=== PATIENT | male | born 1955 | race African-American/Black ===

== ENCOUNTER 2020-07-24 13:55 | Inpatient (IN) | payer MEDICARE, MEDICAID ==
[~2020-07-24] VITALS: Ht 182.9 cm; Wt 68.0 kg
[~2020-07-24 13:55] MED LIST: FAMO-135 MT; MIDO5TAB4 MT
[2020-07-24] MEDS ORDERED: IOHEXOL-350 100 ML BOTTLE ONE ×2 (14:40→15:30)
[2020-07-24 15:01] LABS: BASOPHILS % 0.4 % (0.0-2.0); EOSINOPHILS % 4.2 % (0.0-5.0); LYMPHOCYTES % 12.4 % (20.0-50.0); MEAN CORPUSCULAR HEMOGLOBIN 30.6 pg (28.0-32.0); MEAN CORPUSCULAR VOLUME 91.1 fL (80.0-94.0); MEAN PLATELET VOLUME 7.7 fl (7.4-10.4); MONOCYTES % 6.4 % (2.0-8.0); NEUTROPHILS % 76.6 % (40.0-76.0); PLATELET 355 x1000/uL (130-400); RED BLOOD CELL COUNT 2.18 mill/uL (4.7-6.1); RED CELL DISTRIBUTION WIDTH 18.3 % (11.6-14.6)
[2020-07-24 15:12] LABS: CHLORIDE 111 mEq/L (98-107)
[2020-07-24 15:13] LABS: HEMATOCRIT. 19.9 % (42.0-52.0); HEMOGLOBIN. 6.7 g/dL (14.0-18.0)
[2020-07-24 15:15] LABS: ETHANOL BLOOD < 10 mg/dL
[2020-07-24] MEDS ORDERED: FUROSEMIDE 100MG/10ML VIAL IV STA (15:28)
[2020-07-24] MEDS ORDERED: CALCIUM CHLORIDE 1GM/10ML SYR IV ONE (15:30)
[2020-07-24] MEDS ORDERED: INSULIN REGULAR (HUMULIN R) 300UNITS/3ML VIAL IV ONE (15:30)
[2020-07-24] MEDS ORDERED: ALBUTEROL (0.083%) 2.5MG/3ML NEB HHN ONE (15:30)
[2020-07-24] MEDS ORDERED: DEXTROSE 50% WATER 50ML SYRINGE IV ONE ×2 (15:30→17:45)
[2020-07-24 16:16] LABS: HAPTOGLOBIN 214 mg/dL (30-200)
[2020-07-24 16:34] LABS: CLARITY URINE CLOUDY (CLEAR); COLOR URINE YELLOW (YELLOW); KETONES URINE NEGATIVE (NEGATIVE); LEUKOCYTE ESTERASE URINE 3+ (NEGATIVE); NITRITE URINE NEGATIVE (NEGATIVE); OCCULT BLOOD URINE 1+ (NEGATIVE); PH URINE 6.5 (4.5-8.0); PROTEIN URINE 2+ (NEGATIVE); SPECIFIC GRAVITY URINE 1.009 (1.005-1.030); UROBILINOGEN URINE 0.2 E.U./dL (0.2-1.0)
[2020-07-24 16:46] LABS: *AMPHETAMINES SCREEN URINE NEGATIVE (NEGATIVE); *BARBITURATES SCREEN URINE NEGATIVE (NEGATIVE)
[2020-07-24 16:47] LABS: *BENZODIAZEPINES SCREEN URINE NEGATIVE (NEGATIVE); *COCAINE SCREEN URINE NEGATIVE (NEGATIVE); METHADONE URINE SCREEN NEGATIVE (NEGATIVE); OPIATES URINE SCREEN NEGATIVE (NEGATIVE)
[2020-07-24 16:48] LABS: CANNABINOID URINE SCREEN NEGATIVE (NEGATIVE); PHENCYCLIDINE URINE SCREEN NEGATIVE (NEGATIVE)
[2020-07-24] MEDS ORDERED: HYDRALAZINE 20MG/ML VIAL IV PRN (17:30)
[2020-07-24] MEDS ORDERED: DEXTROSE 50% WATER 50ML SYRINGE IV PRN (17:30)
[2020-07-24] MEDS ORDERED: LIDOCAINE HCL 1% 20ML VIAL (Pyxis) INJ INFIL ONE (17:30)
[2020-07-24] MEDS ORDERED: LORAZEPAM 2MG/ML CPJ IV PRN (17:30)
[2020-07-24] MEDS ORDERED: ONDANSETRON HCL 4MG/2ML INJ IV PRN (17:30)
[2020-07-24] MEDS ORDERED: MORPHINE SULFATE 2 MG/ML CPJ (NOT FOR IM USE) IV PRN (17:30)
[2020-07-24] MEDS ORDERED: SODIUM CHLORIDE 0.9% 250 ML IV ONE (17:45)
[2020-07-24] MEDS ORDERED: SODIUM BICARBONATE 8.4% 1 MEQ/ML 50ML SYR IV NR (17:45)
[2020-07-24 18:07] LABS: C REACTIVE PROTEIN CARDIAC 5.6 mg/L (0.00-3.00)
[2020-07-24 18:11] LABS: D-DIMER 10.87 mg/L FEU (<0.50)
[2020-07-24 18:14] LABS: PROSTRATE SPECIFIC AG TOTAL 3.05 ng/mL (0.0-4.0)
[2020-07-24] MEDS ORDERED: DEXT 5%/0.45% NACL 1000ML 1,000 ML IV SCH (18:15)
[2020-07-24] MEDS: INSULIN LISPRO 100 UNITS/ML SUBCUT SCH ×2 (18:20→22:35)
[2020-07-24] MEDS ORDERED: CALCIUM GLUCONATE 100MG/ML 10ML VIAL IV ONE (18:30)
[2020-07-24 18:47] LABS: BG BASE EXCESS -10.3 mmol/L (-2.0-2.0); BG CARBOXYHEMOGLOBIN 0.2 % (0.5-1.5); BG DEOXYHEMOGLOBIN 2.7 % (0.0-5.0); BG FRACTION INSPIRED OXYGEN 21; BG HCO3 ACT 14.9 mmol/L (22.0-26.0); BG METHEMOGLOBIN 0.7 % (0.0-1.5); BG OXYGEN SATURATION 97.3 % (92.0-98.5); BG OXYHEMOGLOBIN 96.4 % (94.0-97.0); BG PCO2 29.8 mmHg (35.0-45.0); BG PH 7.316 (7.350-7.450); BG PO2 108.8 mmHg (75.0-100.0); BG SAMPLE SITE RIGHT RADIAL; BG TOTAL HEMOGLOBIN 7.3 g/dL (12.0-18.0); BG VENT MODE ROOM AIR
[2020-07-24 19:39] LABS: FOLIC ACID (FOLATE) SERUM 10.4 ng/mL (>5.38)
[2020-07-24] MEDS ORDERED: VANCOMYCIN 1500MG in DEXTROSE 5% WATER 250ML IV NR (20:00)
[2020-07-24] MEDS: DEXT 5%/0.9% NACL 1,000 ML IV SCH (20:15)
[2020-07-24] MEDS: PANTOPRAZOLE SODIUM 40 MG/VIAL IV SCH (20:15)
[2020-07-24] MEDS: PIPERACILLIN/TAZOBACTAM 2.25 G in DEXTROSE 5% WATER 50 ML IV SCH (20:25)
[2020-07-24] MEDS ORDERED: HEPARIN SODIUM 1,000 UNIT/1ML VIAL IV NR (20:30)
[2020-07-24] MEDS ORDERED: NOREPINEPHRINE 8 MG in DEXTROSE 5% WATER 250 ML IV PRN (21:00)
[2020-07-24] MEDS: BLOOD SUGAR DIAGNOSTIC STRIP TEST SCH (22:34)
[2020-07-25 00:57] LABS: HEMATOCRIT 28.8 % (42.0-52.0); HEMOGLOBIN 9.5 g/dL (14.0-18.0)
[2020-07-25 01:07] LABS: CHLORIDE 106 mEq/L (98-107)
[2020-07-25 01:16] LABS: CREATINE KINASE 344 IU/L (39-308)
[2020-07-25 01:19] LABS: CREATINE KINASE MB FRACTION 12.6 ng/mL (0.5-3.6)
[2020-07-25] MEDS: PIPERACILLIN/TAZOBACTAM 2.25 G in DEXTROSE 5% WATER 50 ML IV SCH (02:21)
[2020-07-25 05:28] LABS: BASOPHILS % 0.2 % (0.0-2.0); EOSINOPHILS % 2.4 % (0.0-5.0); HEMATOCRIT. 30.8 % (42.0-52.0); LYMPHOCYTES % 12.1 % (20.0-50.0); MEAN CORPUSCULAR HEMOGLOBIN 29.7 pg (28.0-32.0); MEAN PLATELET VOLUME 7.1 fl (7.4-10.4); MONOCYTES % 8.3 % (2.0-8.0); PLATELET 314 x1000/uL (130-400); RED BLOOD CELL COUNT 3.46 mill/uL (4.7-6.1); RED CELL DISTRIBUTION WIDTH 15.9 % (11.6-14.6)
[2020-07-25 05:36] LABS: CHLORIDE 111 mEq/L (98-107)
[2020-07-25 05:47] LABS: LDL CHOLESTEROL 93 mg/dL (5-100); PHOSPHORUS 4.9 mg/dL (2.5-4.9); T4 FREE 0.88 ng/dL (0.76-1.46)
[2020-07-25 05:48] LABS: CREATINE KINASE 371 IU/L (39-308); CREATINE KINASE MB FRACTION 13.6 ng/mL (0.5-3.6)
[2020-07-25 05:49] LABS: HDL CHOLESTEROL 58 mg/dL (40-59)
[2020-07-25 06:36] LABS: HEMOGLOBIN. 10.3 g/dL (14.0-18.0)
[2020-07-25] MEDS: DEXT 5%/0.9% NACL 1,000 ML IV SCH ×2 (08:24→11:30)
[2020-07-25] MEDS: INSULIN LISPRO 100 UNITS/ML SUBCUT SCH ×3 (09:50→21:00)
[2020-07-25] MEDS: BLOOD SUGAR DIAGNOSTIC STRIP TEST SCH ×4 (09:50→21:00)
[2020-07-25] MEDS ORDERED: PIPERACILLIN/TAZOBACTAM 2.25 G in DEXTROSE 5% WATER 50 ML IV SCH (10:00)
[2020-07-25 13:15] VITALS: BP 125/77
[2020-07-25 14:00] VITALS: BP 117/77
[2020-07-25 15:47] LABS: HEMATOCRIT 29.1 % (42.0-52.0); HEMOGLOBIN 9.7 g/dL (14.0-18.0)
[2020-07-25 16:00] VITALS: BP 81/42
[2020-07-25 17:02] VITALS: BP 121/81
[2020-07-25 18:00] VITALS: BP 108/74
[2020-07-25 19:08] LABS: HEMATOCRIT 30.5 % (42.0-52.0); HEMOGLOBIN 9.8 g/dL (14.0-18.0)
[2020-07-25 20:00] VITALS: BP 107/65
[2020-07-25] MEDS ORDERED: LORAZEPAM 2MG/ML CPJ IM PRN (22:00)
[2020-07-26 08:00] VITALS: BP 126/82
[2020-07-26] MEDS: INSULIN LISPRO 100 UNITS/ML SUBCUT SCH ×4 (08:00→21:00)
[2020-07-26] MEDS: BLOOD SUGAR DIAGNOSTIC STRIP TEST SCH ×4 (08:05→21:11)
[2020-07-26 10:00] VITALS: BP 126/81
[2020-07-26 11:02] LABS: BASOPHILS % 0.2 % (0.0-2.0); EOSINOPHILS % 2.2 % (0.0-5.0); HEMATOCRIT. 30.7 % (42.0-52.0); HEMOGLOBIN. 10.2 g/dL (14.0-18.0); LYMPHOCYTES % 12.1 % (20.0-50.0); MEAN CORPUSCULAR HEMOGLOBIN 29.9 pg (28.0-32.0); MEAN CORPUSCULAR VOLUME 90.3 fL (80.0-94.0); MEAN PLATELET VOLUME 7.5 fl (7.4-10.4); MONOCYTES % 8.7 % (2.0-8.0); NEUTROPHILS % 76.8 % (40.0-76.0); PLATELET 333 x1000/uL (130-400); RED BLOOD CELL COUNT 3.41 mill/uL (4.7-6.1)
[2020-07-26 11:09] LABS: CHLORIDE 114 mEq/L (98-107)
[2020-07-26 11:15] LABS: PHOSPHORUS 3.8 mg/dL (2.5-4.9)
[2020-07-26 11:30] LABS: CREATINE KINASE 1059 IU/L (39-308)
[2020-07-26] MEDS: DEXT 5%/0.9% NACL 1,000 ML IV SCH (11:30)
[2020-07-26 14:00] VITALS: BP 124/29
[2020-07-26 16:00] VITALS: BP 124/70
[2020-07-26 17:44] LABS: BG BASE EXCESS -1.7 mmol/L (-2.0-2.0); BG CARBOXYHEMOGLOBIN 0.3 % (0.5-1.5); BG HCO3 ACT 22.5 mmol/L (22.0-26.0); BG METHEMOGLOBIN 0.3 % (0.0-1.5); BG OXYHEMOGLOBIN 95.4 % (94.0-97.0); BG PCO2 36.2 mmHg (35.0-45.0); BG PH 7.412 (7.350-7.450); BG PO2 79.2 mmHg (75.0-100.0); BG SAMPLE SITE RIGHT BRACHIAL; BG TOTAL HEMOGLOBIN 11.6 g/dL (12.0-18.0); BG VENT MODE ROOM AIR
[2020-07-26 20:00] VITALS: BP 111/67
[2020-07-26] MEDS: PIPERACILLIN/TAZOBACTAM 2.25 G in DEXTROSE 5% WATER 50 ML IV SCH ×2 (20:02→21:06)
[2020-07-26 22:00] VITALS: BP 109/63
[2020-07-27] VITALS (11 sets, daily range): BP systolic 101–126; BP diastolic 55–76
[2020-07-27] MEDS: PIPERACILLIN/TAZOBACTAM 2.25 G in DEXTROSE 5% WATER 50 ML IV SCH ×4 (04:55→23:14)
[2020-07-27] MEDS: DEXT 5%/0.9% NACL 1,000 ML IV SCH ×2 (04:55→21:46)
[2020-07-27 06:52] LABS: BASOPHILS % 0.2 % (0.0-2.0); EOSINOPHILS % 3.8 % (0.0-5.0); HEMATOCRIT. 27.7 % (42.0-52.0); LYMPHOCYTES % 20.3 % (20.0-50.0); MEAN CORPUSCULAR HEMOGLOBIN 29.7 pg (28.0-32.0); MEAN CORPUSCULAR VOLUME 91.6 fL (80.0-94.0); MEAN PLATELET VOLUME 7.6 fl (7.4-10.4); MONOCYTES % 10.8 % (2.0-8.0); NEUTROPHILS % 64.9 % (40.0-76.0); PLATELET 291 x1000/uL (130-400); RED BLOOD CELL COUNT 3.02 mill/uL (4.7-6.1)
[2020-07-27 07:16] LABS: PHOSPHORUS 4.1 mg/dL (2.5-4.9)
[2020-07-27 07:18] LABS: HEPATITIS B SURFACE ANTIGEN NEGATIVE
[2020-07-27 07:20] LABS: CREATINE KINASE MB FRACTION 5.8 ng/mL (0.5-3.6)
[2020-07-27 07:47] LABS: HEPATITIS A AB IGM NEGATIVE (NEGATIVE)
[2020-07-27] MEDS: BLOOD SUGAR DIAGNOSTIC STRIP TEST SCH ×4 (07:58→21:00)
[2020-07-27] MEDS: INSULIN LISPRO 100 UNITS/ML SUBCUT SCH ×4 (07:58→22:01)
[2020-07-27] MEDS: PANTOPRAZOLE SODIUM 40 MG/VIAL IV SCH ×2 (11:03→18:25)
[2020-07-27] MEDS: EPOETIN ALFA-EPBX 4,000 UNIT/ML VIAL SUBCUT SCH (21:52)
[2020-07-28] VITALS (11 sets, daily range): BP systolic 83–145; BP diastolic 52–72
[2020-07-28 06:07] LABS: HIV SCREEN 4G Non Reactive (Non Reactive)
[2020-07-28] MEDS: PIPERACILLIN/TAZOBACTAM 2.25 G in DEXTROSE 5% WATER 50 ML IV SCH ×3 (06:17→23:19)
[2020-07-28 06:42] LABS: BASOPHILS % 0.3 % (0.0-2.0); EOSINOPHILS % 5.6 % (0.0-5.0); HEMATOCRIT. 24.9 % (42.0-52.0); HEMOGLOBIN. 8.2 g/dL (14.0-18.0); LYMPHOCYTES % 17.6 % (20.0-50.0); MEAN CORPUSCULAR HEMOGLOBIN 30.5 pg (28.0-32.0); MEAN CORPUSCULAR VOLUME 92.7 fL (80.0-94.0); MEAN PLATELET VOLUME 7.9 fl (7.4-10.4); MONOCYTES % 9.4 % (2.0-8.0); NEUTROPHILS % 67.1 % (40.0-76.0); PLATELET 264 x1000/uL (130-400); RED BLOOD CELL COUNT 2.69 mill/uL (4.7-6.1)
[2020-07-28] MEDS: INSULIN LISPRO 100 UNITS/ML SUBCUT SCH ×4 (08:00→20:53)
[2020-07-28 08:05] LABS: CHLORIDE 116 mEq/L (98-107)
[2020-07-28] MEDS: BLOOD SUGAR DIAGNOSTIC STRIP TEST SCH ×4 (08:06→20:53)
[2020-07-28 08:12] LABS: PHOSPHORUS 3.5 mg/dL (2.5-4.9)
[2020-07-28] MEDS ORDERED: HEPARIN SODIUM 1,000 UNIT/1ML VIAL IV SCH (08:30)
[2020-07-28] MEDS: PANTOPRAZOLE SODIUM 40 MG/VIAL IV SCH (10:56)
[2020-07-28] MEDS: DEXT 5%/0.9% NACL 1,000 ML IV SCH (14:19)
[2020-07-28] MEDS: MIDODRINE HCL 5MG TABLET PO SCH (18:07)
[2020-07-28] MEDS ORDERED: IOHEXOL 350 MG/ML 200ML INFUS..BTL IV ONE (21:53)
[2020-07-29] VITALS (8 sets, daily range): BP systolic 96–117; BP diastolic 45–73
[2020-07-29] MEDS: DEXT 5%/0.9% NACL 1,000 ML IV SCH ×2 (01:55→13:05)
[2020-07-29 06:04] LABS: PHOSPHORUS 3.2 mg/dL (2.5-4.9)
[2020-07-29 06:12] LABS: BASOPHILS % 0.3 % (0.0-2.0); EOSINOPHILS % 8.1 % (0.0-5.0); HEMATOCRIT. 24.1 % (42.0-52.0); HEMOGLOBIN. 8.1 g/dL (14.0-18.0); MEAN CORPUSCULAR HEMOGLOBIN 30.6 pg (28.0-32.0); MEAN CORPUSCULAR VOLUME 90.9 fL (80.0-94.0); MEAN PLATELET VOLUME 7.8 fl (7.4-10.4); MONOCYTES % 10.2 % (2.0-8.0); NEUTROPHILS % 60.4 % (40.0-76.0); PLATELET 232 x1000/uL (130-400); RED BLOOD CELL COUNT 2.65 mill/uL (4.7-6.1); RED CELL DISTRIBUTION WIDTH 15.7 % (11.6-14.6)
[2020-07-29] MEDS: PIPERACILLIN/TAZOBACTAM 2.25 G in DEXTROSE 5% WATER 50 ML IV SCH ×3 (06:33→20:47)
[2020-07-29] MEDS: INSULIN LISPRO 100 UNITS/ML SUBCUT SCH ×4 (07:53→20:47)
[2020-07-29] MEDS: BLOOD SUGAR DIAGNOSTIC STRIP TEST SCH ×4 (07:53→20:47)
[2020-07-29] MEDS: PANTOPRAZOLE SODIUM 40 MG/VIAL IV SCH ×2 (08:00→17:33)
[2020-07-29] MEDS: MIDODRINE HCL 5MG TABLET PO SCH ×3 (08:03→17:34)
[2020-07-30] VITALS (7 sets, daily range): BP systolic 110–131; BP diastolic 39–71
[2020-07-30] MEDS: EPOETIN ALFA-EPBX 4,000 UNIT/ML VIAL SUBCUT SCH (00:30)
[2020-07-30] MEDS: DEXT 5%/0.9% NACL 1,000 ML IV SCH ×3 (00:47→17:22)
[2020-07-30] MEDS: PIPERACILLIN/TAZOBACTAM 2.25 G in DEXTROSE 5% WATER 50 ML IV SCH (05:47)
[2020-07-30 06:17] LABS: BASOPHILS % 0.4 % (0.0-2.0); EOSINOPHILS % 6.5 % (0.0-5.0); HEMATOCRIT. 23.4 % (42.0-52.0); HEMOGLOBIN. 8.1 g/dL (14.0-18.0); MEAN CORPUSCULAR HEMOGLOBIN 31.7 pg (28.0-32.0); MEAN CORPUSCULAR VOLUME 91.7 fL (80.0-94.0); NEUTROPHILS % 61.1 % (40.0-76.0); PLATELET 227 x1000/uL (130-400); RED BLOOD CELL COUNT 2.55 mill/uL (4.7-6.1); RED CELL DISTRIBUTION WIDTH 15.9 % (11.6-14.6)
[2020-07-30] MEDS: BLOOD SUGAR DIAGNOSTIC STRIP TEST SCH ×4 (07:30→21:00)
[2020-07-30] MEDS: INSULIN LISPRO 100 UNITS/ML SUBCUT SCH ×4 (08:00→21:15)
[2020-07-30] MEDS: PANTOPRAZOLE SODIUM 40 MG/VIAL IV SCH ×2 (09:28→17:20)
[2020-07-30] MEDS: MIDODRINE HCL 5MG TABLET PO SCH ×3 (09:28→17:20)
[2020-07-30] MEDS: ACETAMINOPHEN 325MG TABLET PO PRN (21:36)
[2020-07-30 22:01] LABS: CLARITY URINE CLEAR (CLEAR); COLOR URINE YELLOW (YELLOW); KETONES URINE NEGATIVE (NEGATIVE); LEUKOCYTE ESTERASE URINE 2+ (NEGATIVE); NITRITE URINE NEGATIVE (NEGATIVE); OCCULT BLOOD URINE 2+ (NEGATIVE); PH URINE 6.5 (4.5-8.0); PROTEIN URINE TRACE (NEGATIVE); SPECIFIC GRAVITY URINE 1.006 (1.005-1.030); UROBILINOGEN URINE 0.2 E.U./dL (0.2-1.0)
[2020-07-31] VITALS (11 sets, daily range): BP systolic 92–133; BP diastolic 37–78
[2020-07-31 05:57] LABS: BASOPHILS % 0.4 % (0.0-2.0); EOSINOPHILS % 8.7 % (0.0-5.0); HEMATOCRIT. 22.6 % (42.0-52.0); HEMOGLOBIN. 7.7 g/dL (14.0-18.0); LYMPHOCYTES % 23.7 % (20.0-50.0); MEAN CORPUSCULAR HEMOGLOBIN 31.3 pg (28.0-32.0); MEAN CORPUSCULAR VOLUME 91.9 fL (80.0-94.0); MONOCYTES % 11.9 % (2.0-8.0); NEUTROPHILS % 55.3 % (40.0-76.0); PLATELET 221 x1000/uL (130-400); RED BLOOD CELL COUNT 2.46 mill/uL (4.7-6.1); RED CELL DISTRIBUTION WIDTH 15.7 % (11.6-14.6)
[2020-07-31] MEDS: INSULIN LISPRO 100 UNITS/ML SUBCUT SCH ×4 (08:00→21:00)
[2020-07-31] MEDS: BLOOD SUGAR DIAGNOSTIC STRIP TEST SCH ×4 (08:14→21:00)
[2020-07-31] MEDS: MIDODRINE HCL 5MG TABLET PO SCH ×3 (09:00→17:00)
[2020-07-31] MEDS: PANTOPRAZOLE SODIUM 40 MG/VIAL IV SCH ×2 (09:11→17:57)
[2020-08-01] VITALS (9 sets, daily range): BP systolic 114–136; BP diastolic 60–79
[2020-08-01 06:55] LABS: BASOPHILS % 0.3 % (0.0-2.0); EOSINOPHILS % 6.5 % (0.0-5.0); HEMATOCRIT. 24.2 % (42.0-52.0); HEMOGLOBIN. 8.1 g/dL (14.0-18.0); LYMPHOCYTES % 20.9 % (20.0-50.0); MEAN CORPUSCULAR HEMOGLOBIN 30.7 pg (28.0-32.0); MEAN CORPUSCULAR VOLUME 91.3 fL (80.0-94.0); MEAN PLATELET VOLUME 8.2 fl (7.4-10.4); MONOCYTES % 9.3 % (2.0-8.0); PLATELET 241 x1000/uL (130-400); RED BLOOD CELL COUNT 2.65 mill/uL (4.7-6.1); RED CELL DISTRIBUTION WIDTH 15.5 % (11.6-14.6)
[2020-08-01 07:18] LABS: PHOSPHORUS 2.9 mg/dL (2.5-4.9)
[2020-08-01] MEDS: BLOOD SUGAR DIAGNOSTIC STRIP TEST SCH ×4 (07:30→21:32)
[2020-08-01] MEDS: MIDODRINE HCL 5MG TABLET PO SCH ×3 (08:36→18:22)
[2020-08-01] MEDS: PANTOPRAZOLE SODIUM 40 MG/VIAL IV SCH ×2 (08:36→18:21)
[2020-08-01] MEDS: INSULIN LISPRO 100 UNITS/ML SUBCUT SCH ×3 (13:00→21:32)
[2020-08-01] MEDS ORDERED: MAGNESIUM 2 G PREMIX 50 ML IV SCH (16:00)
[2020-08-01] MEDS: ACETAMINOPHEN 325MG TABLET PO PRN (20:27)
[2020-08-01] MEDS: EPOETIN ALFA-EPBX 4,000 UNIT/ML VIAL SUBCUT SCH (21:57)
[2020-08-02] VITALS (12 sets, daily range): BP systolic 77–116; BP diastolic 49–82
[2020-08-02 06:47] LABS: BASOPHILS % 0.3 % (0.0-2.0); EOSINOPHILS % 5.7 % (0.0-5.0); HEMATOCRIT. 25.8 % (42.0-52.0); HEMOGLOBIN. 8.5 g/dL (14.0-18.0); LYMPHOCYTES % 20.1 % (20.0-50.0); MEAN CORPUSCULAR HEMOGLOBIN 30.3 pg (28.0-32.0); MEAN CORPUSCULAR VOLUME 91.5 fL (80.0-94.0); MONOCYTES % 9.8 % (2.0-8.0); NEUTROPHILS % 64.1 % (40.0-76.0); PLATELET 257 x1000/uL (130-400); RED BLOOD CELL COUNT 2.82 mill/uL (4.7-6.1); RED CELL DISTRIBUTION WIDTH 15.3 % (11.6-14.6)
[2020-08-02 07:06] LABS: PHOSPHORUS 4.3 mg/dL (2.5-4.9)
[2020-08-02] MEDS: BLOOD SUGAR DIAGNOSTIC STRIP TEST SCH ×4 (07:30→21:31)
[2020-08-02] MEDS: INSULIN LISPRO 100 UNITS/ML SUBCUT SCH ×4 (08:00→21:40)
[2020-08-02] MEDS: MIDODRINE HCL 5MG TABLET PO SCH ×4 (09:00→18:39)
[2020-08-02] MEDS: PANTOPRAZOLE SODIUM 40 MG/VIAL IV SCH ×2 (09:00→18:38)
[2020-08-02] MEDS: ACETAMINOPHEN 325MG TABLET PO PRN (10:34)
[2020-08-02] MEDS ORDERED: DIPHENHYDRAMINE 50MG/ML VIAL IV PRN (13:45)
[2020-08-02] MEDS ORDERED: IPRATROPIUM/ALBUTEROL 0.5-3(2.5)MG/3ML NEB HHN PRN (13:45)
[2020-08-02] MEDS ORDERED: HYDRALAZINE 10 MG in SODIUM CHLORIDE 0.9% 49.5 ML IV PRN (13:45)
[2020-08-02] MEDS ORDERED: HYDROCODONE/ACETAMINOPHEN 5/325MG TABLET PO PRN (13:45)
[2020-08-02] MEDS ORDERED: LORAZEPAM 2MG/ML CPJ IV PRN (13:45)
[2020-08-02] MEDS ORDERED: BISACODYL 10MG SUPP PR PRN (13:45)
[2020-08-02] MEDS ORDERED: HYDRALAZINE 20MG/ML VIAL IV PRN (14:00)
[2020-08-02] MEDS: DEXAMETHASONE 4MG/ML 1ML VIAL IV SCH ×2 (18:38→23:18)
[2020-08-02] MEDS ORDERED: NOREPINEPHRINE 8 MG in DEXT 5% WATER 242 ML IV PRN (20:00)
[2020-08-02] MEDS ORDERED: PHENYLEPHRINE 50 MG in DEXT 5% WATER 245 ML IV PRN (20:00)
[2020-08-03] VITALS (77 sets, daily range): BP systolic 40–188; BP diastolic 14–187
[2020-08-03] MEDS ORDERED: DEXT 5%/0.9% NACL 1,000 ML IV SCH
[2020-08-03] MEDS: DEXAMETHASONE 4MG/ML 1ML VIAL IV SCH ×3 (05:29→17:22)
[2020-08-03] MEDS ORDERED: THROMBIN (BOVINE) 5000 UNITS/VIAL TOP ONE (06:05)
[2020-08-03] MEDS ORDERED: BACITRACIN 50,000 UNITS/VIAL ONE (06:05)
[2020-08-03] MEDS ORDERED: NEOSTIGMINE METHYLSULFATE 1MG/ML 10 ML VIAL ONE (06:50)
[2020-08-03] MEDS ORDERED: ROCURONIUM BROMIDE 10MG/ML VIAL 5ML IV ONE (06:50)
[2020-08-03] MEDS ORDERED: FENTANYL CITRATE/PF 50MCG/ML 2ML VIAL ONE ×3 (06:50→07:32)
[2020-08-03] MEDS ORDERED: PROPOFOL 200MG/20ML VIAL IV ONE (06:51)
[2020-08-03] MEDS ORDERED: METOCLOPRAMIDE HCL 10MG/2ML VIAL ONE (06:51)
[2020-08-03] MEDS ORDERED: EPHEDRINE SULFATE 50MG/ML VIAL ONE (06:51)
[2020-08-03] MEDS ORDERED: GLYCOPYRROLATE 0.2 MG/ML 2ML VIAL ONE (06:51)
[2020-08-03] MEDS ORDERED: SUCCINYLCHOLINE CHLORIDE 200MG/10ML IV ONE (06:51)
[2020-08-03] MEDS ORDERED: MIDAZOLAM HCL 2 MG/2 ML VIAL ONE (06:51)
[2020-08-03] MEDS ORDERED: CEFAZOLIN SODIUM 1000MG/VIAL ONE (06:51)
[2020-08-03] MEDS ORDERED: PHENYLEPHRINE HCL 10 MG/ML 1ML (IV VIAL) IV ONE (06:51)
[2020-08-03] MEDS ORDERED: SODIUM CHLORIDE 0.9% 10ML VIAL ONE (06:51)
[2020-08-03] MEDS ORDERED: ONDANSETRON HCL 4MG/2ML INJ ONE (06:51)
[2020-08-03 06:59] LABS: BASOPHILS % 0.2 % (0.0-2.0); HEMATOCRIT. 25.4 % (42.0-52.0); HEMOGLOBIN. 8.6 g/dL (14.0-18.0); MEAN CORPUSCULAR HEMOGLOBIN 31.1 pg (28.0-32.0); MEAN CORPUSCULAR VOLUME 92.5 fL (80.0-94.0); MEAN PLATELET VOLUME 8.3 fl (7.4-10.4); MONOCYTES % 1.2 % (2.0-8.0); NEUTROPHILS % 83.6 % (40.0-76.0); PLATELET 287 x1000/uL (130-400); RED BLOOD CELL COUNT 2.75 mill/uL (4.7-6.1); RED CELL DISTRIBUTION WIDTH 15.4 % (11.6-14.6)
[2020-08-03 07:11] LABS: PHOSPHORUS 3.7 mg/dL (2.5-4.9)
[2020-08-03] MEDS ORDERED: DEXAMETHASONE 4MG/ML 1ML VIAL ONE (07:56)
[2020-08-03] MEDS: PANTOPRAZOLE SODIUM 40 MG/VIAL IV SCH ×2 (09:00→17:22)
[2020-08-03] MEDS: DEXT 5%/0.9% NACL 1,000 ML IV SCH ×2 (10:04→17:35)
[2020-08-03] MEDS: NICARDIPINE 100 MG in SODIUM CHLORIDE 0.9% 60 ML IV PRN ×2 (10:05→17:22)
[2020-08-03] MEDS: MORPHINE SULFATE 2 MG/ML CPJ (NOT FOR IM USE) IV PRN ×2 (10:06→17:24)
[2020-08-03] MEDS: BLOOD SUGAR DIAGNOSTIC STRIP TEST SCH ×3 (11:53→20:53)
[2020-08-03] MEDS: MIDODRINE HCL 5MG TABLET PO SCH ×2 (12:07→16:06)
[2020-08-03] MEDS: INSULIN LISPRO 100 UNITS/ML SUBCUT SCH ×3 (12:14→20:48)
[2020-08-03] MEDS ORDERED: CEFAZOLIN SODIUM 1000MG/VIAL IV SCH (14:00)
[2020-08-03] MEDS: AMLODIPINE 5MG TABLET PO SCH (17:23)
[2020-08-03] MEDS: CEFAZOLIN 1000MG PREMIX 50 ML IV SCH (17:39)
[2020-08-03] MEDS: HYDRALAZINE HCL 25MG TABLET PO SCH (21:38)
[2020-08-04] VITALS (81 sets, daily range): BP systolic 53–254; BP diastolic 47–253
[2020-08-04] MEDS: DEXAMETHASONE 4MG/ML 1ML VIAL IV SCH ×3 (00:06→12:32)
[2020-08-04] MEDS: NICARDIPINE 100 MG in SODIUM CHLORIDE 0.9% 60 ML IV PRN ×2 (01:50→08:03)
[2020-08-04] MEDS: DEXT 5%/0.9% NACL 1,000 ML IV SCH (04:32)
[2020-08-04 05:13] LABS: HEMOGLOBIN. 8.5 g/dL (14.0-18.0); MEAN CORPUSCULAR VOLUME 91.3 fL (80.0-94.0); MEAN PLATELET VOLUME 8.4 fl (7.4-10.4); PLATELET 351 x1000/uL (130-400); RED BLOOD CELL COUNT 2.85 mill/uL (4.7-6.1); RED CELL DISTRIBUTION WIDTH 15.5 % (11.6-14.6)
[2020-08-04 05:27] LABS: PHOSPHORUS 3.8 mg/dL (2.5-4.9)
[2020-08-04] MEDS: HYDRALAZINE HCL 25MG TABLET PO SCH (05:50)
[2020-08-04] MEDS: INSULIN LISPRO 100 UNITS/ML SUBCUT SCH ×4 (06:08→21:17)
[2020-08-04] MEDS: BLOOD SUGAR DIAGNOSTIC STRIP TEST SCH ×4 (06:09→21:00)
[2020-08-04] MEDS: CEFAZOLIN 1000MG PREMIX 50 ML IV SCH (06:20)
[2020-08-04] MEDS: PANTOPRAZOLE SODIUM 40 MG/VIAL IV SCH ×2 (08:32→17:31)
[2020-08-04] MEDS: AMLODIPINE 5MG TABLET PO SCH (08:32)
[2020-08-04] MEDS ORDERED: AMLODIPINE 5MG TABLET PO NR (10:00)
[2020-08-04] MEDS: HYDRALAZINE HCL 50MG TABLET PO SCH ×2 (10:02→17:31)
[2020-08-04 10:18] LABS: PLATELET ESTIMATE NORMAL
[2020-08-04] MEDS ORDERED: SODIUM POLYSTYRENE SULFONATE 15 G/60 ML BOT PO NR (11:00)
[2020-08-04] MEDS: METOPROLOL TARTRATE 25MG TABLET PO SCH (17:32)
[2020-08-04] MEDS ORDERED: DEXAMETHASONE 4MG/ML 1ML VIAL IV SCH (18:00)
[2020-08-05] VITALS (35 sets, daily range): BP systolic 95–131; BP diastolic 44–80
[2020-08-05] MEDS: HYDRALAZINE HCL 50MG TABLET PO SCH ×3 (02:50→18:36)
[2020-08-05 05:33] LABS: HEMATOCRIT. 26.9 % (42.0-52.0); HEMOGLOBIN. 8.8 g/dL (14.0-18.0); MEAN CORPUSCULAR HEMOGLOBIN 29.9 pg (28.0-32.0); MEAN CORPUSCULAR VOLUME 91.5 fL (80.0-94.0); MEAN PLATELET VOLUME 8.3 fl (7.4-10.4); PLATELET 389 x1000/uL (130-400); RED BLOOD CELL COUNT 2.94 mill/uL (4.7-6.1); RED CELL DISTRIBUTION WIDTH 15.7 % (11.6-14.6)
[2020-08-05 05:43] LABS: PHOSPHORUS 3.4 mg/dL (2.5-4.9)
[2020-08-05] MEDS: BLOOD SUGAR DIAGNOSTIC STRIP TEST SCH ×4 (06:30→20:49)
[2020-08-05] MEDS: METOPROLOL TARTRATE 25MG TABLET PO SCH ×2 (06:35→18:36)
[2020-08-05] MEDS: INSULIN LISPRO 100 UNITS/ML SUBCUT SCH ×4 (06:36→20:49)
[2020-08-05 07:58] LABS: PLATELET ESTIMATE NORMAL
[2020-08-05] MEDS: PANTOPRAZOLE SODIUM 40 MG/VIAL IV SCH ×2 (09:18→18:09)
[2020-08-05] MEDS: AMLODIPINE 10MG TABLET PO SCH (09:19)
[2020-08-05] MEDS ORDERED: SODIUM POLYSTYRENE SULFONATE 15 G/60 ML BOT PO NR (15:45)
[2020-08-06] VITALS (7 sets, daily range): BP systolic 99–125; BP diastolic 68–79
[2020-08-06] MEDS: HYDRALAZINE HCL 50MG TABLET PO SCH ×3 (01:24→18:00)
[2020-08-06] MEDS: METOPROLOL TARTRATE 25MG TABLET PO SCH ×2 (05:18→18:00)
[2020-08-06] MEDS: BLOOD SUGAR DIAGNOSTIC STRIP TEST SCH ×3 (05:41→20:20)
[2020-08-06 05:58] LABS: HEMATOCRIT. 26.1 % (42.0-52.0); HEMOGLOBIN. 8.7 g/dL (14.0-18.0); LYMPHOCYTES % 10.2 % (20.0-50.0); MEAN CORPUSCULAR HEMOGLOBIN 30.1 pg (28.0-32.0); MEAN CORPUSCULAR VOLUME 90.7 fL (80.0-94.0); MEAN PLATELET VOLUME 8.2 fl (7.4-10.4); MONOCYTES % 8.7 % (2.0-8.0); NEUTROPHILS % 81.1 % (40.0-76.0); PLATELET 418 x1000/uL (130-400); RED BLOOD CELL COUNT 2.88 mill/uL (4.7-6.1); RED CELL DISTRIBUTION WIDTH 15.6 % (11.6-14.6)
[2020-08-06 06:18] LABS: CHLORIDE 107 mEq/L (98-107)
[2020-08-06 06:25] LABS: PHOSPHORUS 3.6 mg/dL (2.5-4.9)
[2020-08-06] MEDS: PANTOPRAZOLE SODIUM 40 MG/VIAL IV SCH ×2 (08:21→17:00)
[2020-08-06] MEDS: INSULIN LISPRO 100 UNITS/ML SUBCUT SCH ×3 (08:25→20:20)
[2020-08-06] MEDS: AMLODIPINE 10MG TABLET PO SCH (09:29)
[2020-08-06] MEDS ORDERED: MORPHINE SULFATE 2 MG/ML CPJ (NOT FOR IM USE) IV PRN (13:45)
== END 2020-08-06 21:50 | DRG 853 ==
LOC: ER 14:09 → MICUSO 17:27 → EDBEDREQ 17:33 → EDBEDREQSVC 17:49 → EDBEDREQTM 17:49 → CVICU 07-25 09:56 → MICUSO 07-25 10:03 → 5EST 07-25 11:23 → MICUSO 08-03 09:16 → 6WST 08-05 11:20
PROVIDERS: ADMIT Internal Medicine; ATTEND Internal Medicine
PROC: B54BZZA Ultrasonography of Right Lower Extremity Veins, Guidance (ICD-10-PCS; 2020-07-24)
PROC: 06HY33Z Insertion of Infusion Device into Lower Vein, Percutaneous Approach (ICD-10-PCS; 2020-07-24)
PROC: 30233N1 Transfusion of Nonautologous Red Blood Cells into Peripheral Vein, Percutaneous Approach (ICD-10-PCS; 2020-07-24)
PROC: 5A1D70Z Performance of Urinary Filtration, Intermittent, Less than 6 Hours Per Day (ICD-10-PCS; 2020-07-24)
PROC: 5A1D70Z Performance of Urinary Filtration, Intermittent, Less than 6 Hours Per Day (ICD-10-PCS; 2020-07-25)
PROC: 0RG10A0 Fusion of Cervical Vertebral Joint with Interbody Fusion Device, Anterior Approach, Anterior Column, Open Approach (ICD-10-PCS; principal; 2020-08-03)
PROC: 0RB30ZZ Excision of Cervical Vertebral Disc, Open Approach (ICD-10-PCS; 2020-08-03)
PROC: 00NW0ZZ Release Cervical Spinal Cord, Open Approach (ICD-10-PCS; 2020-08-03)
PROC: 4A11X4G Monitoring of Peripheral Nervous Electrical Activity, Intraoperative, External Approach (ICD-10-PCS; 2020-08-03)
DX: A41.9 Sepsis, unspecified organism (principal); G93.41 Metabolic encephalopathy; G82.50 Quadriplegia, unspecified; N17.9 Acute kidney failure, unspecified; N13.6 Pyonephrosis; E87.2 Acidosis; M62.82 Rhabdomyolysis; G95.29 Other cord compression; N13.8 Other obstructive and reflux uropathy; E87.5 Hyperkalemia; E11.22 Type 2 diabetes mellitus with diabetic chronic kidney disease; D64.9 Anemia, unspecified; N18.30 Chronic kidney disease, stage 3 unspecified; M50.21 Other cervical disc displacement, high cervical region; M48.02 Spinal stenosis, cervical region; E83.42 Hypomagnesemia; F17.200 Nicotine dependence, unspecified, uncomplicated; K40.90 Unilateral inguinal hernia, without obstruction or gangrene, not specified as recurrent; R33.9 Retention of urine, unspecified; I13.10 Hypertensive heart and chronic kidney disease without heart failure, with stage 1 through stage 4 chronic kidney disease, or unspecified chronic kidney disease; N31.9 Neuromuscular dysfunction of bladder, unspecified; Z20.822 Contact with and (suspected) exposure to COVID-19; M47.892 Other spondylosis, cervical region; N28.1 Cyst of kidney, acquired; N40.0 Benign prostatic hyperplasia without lower urinary tract symptoms; I69.320 Aphasia following cerebral infarction; Z83.3 Family history of diabetes mellitus; Z79.899 Other long term (current) drug therapy
CPT/HCPCS: 36415; 36600; 70496; 70551; 71045; 72040; 72141; 72146; 72148; 74176; 76000; 76770; 78582; 80048; 80053; 80061; 80202; 80305; 80320; 81003; 82270; 82375; 82550; 82553; 82607; 82728; 82746; 82805; 82962; 83010; 83036; 83540; 83550; 83605; 83615; 83735; 83880; 84100; 84132; 84153; 84439; 84443; 84484; 85014; 85018; 85025; 85044; 85379; 85384; 86141; 86705; 86709; 86803; 86850; 86900; 86920; 87070; 87340; 87389; 87426; 88304; 88311; 93005; 93306; 93970; 94640; 96374; 97116; 97162; 97530; 99291; A9558; C1713; C9113; J0330; J0610; J0690; J0885; J1100; J1644; J1815; J1940; J2060; J2250; J2270; J2370; J2405; J2543; J2704; J2710; J2765; J3010; J3370; J3475; J3490; J7040; J7042; J7050; J7060; P9016; P9021; Q9967; C1762; G0103; G0480

== ENCOUNTER 2020-09-04 09:33 | Inpatient (IN) | payer MEDICARE, MEDICAID ==
[~2020-09-04] VITALS: Ht 162.6 cm; Wt 66.2 kg
[2020-09-04 10:34] LABS: HEMATOCRIT. 25.8 % (42.0-52.0); HEMOGLOBIN. 8.5 g/dL (14.0-18.0); MEAN CORPUSCULAR HEMOGLOBIN 30.9 pg (28.0-32.0); MEAN CORPUSCULAR VOLUME 93.6 fL (80.0-94.0); MEAN PLATELET VOLUME 6.8 fl (7.4-10.4); PLATELET 447 x1000/uL (130-400); RED BLOOD CELL COUNT 2.76 mill/uL (4.7-6.1)
[2020-09-04 10:39] LABS: CHLORIDE 95 mEq/L (98-107)
[2020-09-04 10:57] LABS: CLARITY URINE TURBID (CLEAR); COLOR URINE YELLOW (YELLOW); KETONES URINE TRACE (NEGATIVE); LEUKOCYTE ESTERASE URINE 3+ (NEGATIVE); NITRITE URINE NEGATIVE (NEGATIVE); OCCULT BLOOD URINE 3+ (NEGATIVE); PH URINE 5.5 (4.5-8.0); PROTEIN URINE 3+ (NEGATIVE); UROBILINOGEN URINE 0.2 E.U./dL (0.2-1.0)
[2020-09-04] MEDS ORDERED: CALCIUM GLUCONATE 100MG/ML 10ML VIAL IV ONE (11:00)
[2020-09-04] MEDS ORDERED: SODIUM CHLORIDE 0.9% 1000ML BAG (SEPSIS BOLUS) IV ONE (11:00)
[2020-09-04] MEDS ORDERED: VANCOMYCIN 1 G PREMIX 200 ML IV ONE (11:00)
[2020-09-04] MEDS ORDERED: PIPERACILLIN/TAZ 3.375G PREMIX 50 ML IV ONE (11:00)
[2020-09-04 11:28] LABS: PLATELET ESTIMATE INCREASED
[2020-09-04] MEDS ORDERED: CALCIUM GLUCONATE 2,000 MG in DEXT 5% WATER 90 ML IV NR (11:45)
[2020-09-04 12:40] LABS: INR 1.1; PROTHROMBIN TIME 11.5 sec (9.6-11.0)
[2020-09-04] MEDS ORDERED: INSULIN REGULAR (HUMULIN R) 300UNITS/3ML VIAL IV ONE (14:15)
[2020-09-04] MEDS ORDERED: DEXTROSE 50% WATER 50ML SYRINGE IV ONE (14:15)
[2020-09-04] MEDS ORDERED: MORPHINE SULFATE 2 MG/ML CPJ (NOT FOR IM USE) IV PRN (14:45)
[2020-09-04] MEDS ORDERED: ONDANSETRON HCL 4MG/2ML INJ IV PRN (14:45)
[2020-09-04] MEDS ORDERED: DEXTROSE 50% WATER 50ML SYRINGE IV PRN (14:45)
[2020-09-04] MEDS ORDERED: HYDROCODONE/ACETAMINOPHEN 5/325MG TABLET PO PRN (14:45)
[2020-09-04] MEDS ORDERED: INSULIN REGULAR (HUMULIN R) 300UNITS/3ML VIAL IV SCH (14:45)
[2020-09-04] MEDS ORDERED: IPRATROPIUM/ALBUTEROL 0.5-3(2.5)MG/3ML NEB HHN SCH (14:45)
[2020-09-04] MEDS ORDERED: IPRATROPIUM/ALBUTEROL 0.5-3(2.5)MG/3ML NEB NEB PRN (14:45)
[2020-09-04] MEDS ORDERED: CALCIUM CHLORIDE 1GM/10ML SYR IV ONE (14:45)
[2020-09-04] MEDS ORDERED: ACETAMINOPHEN 650MG SUPP PR PRN (14:45)
[2020-09-04] MEDS ORDERED: SODIUM POLYSTYRENE SULFONATE 15 G/60 ML BOT PO SCH (14:45)
[2020-09-04] MEDS ORDERED: DIPHENHYDRAMINE 50MG/ML VIAL IV PRN (14:45)
[2020-09-04] MEDS ORDERED: ACETAMINOPHEN 325MG TABLET PO PRN (14:45)
[2020-09-04] MEDS ORDERED: SODIUM BICARBONATE 8.4% 1 MEQ/ML 50ML SYR IV SCH (14:45)
[2020-09-04] MEDS ORDERED: MAGNESIUM/ALUMINUM HYDROXIDE/SIMETHICONE 30ML UDC PO PRN (14:45)
[2020-09-04] MEDS ORDERED: GUAIFENESIN 200MG/10ML SUGAR FREE UDC PO PRN (14:45)
[2020-09-04] MEDS ORDERED: NA PHOS,M-B/NA PHOS,DI-BA ENEMA 118ML PR PRN (14:45)
[2020-09-04] MEDS ORDERED: DEXTROSE 50% WATER 50ML SYRINGE IV SCH (14:45)
[2020-09-04] MEDS ORDERED: LORAZEPAM 0.5MG TABLET PO PRN (14:45)
[2020-09-04] MEDS ORDERED: DOCUSATE SODIUM 100MG CAPSULE PO PRN (14:45)
[2020-09-04 15:24] LABS: BG BASE EXCESS -13.3 mmol/L (-2.0-2.0); BG CARBOXYHEMOGLOBIN 0.3 % (0.5-1.5); BG DEOXYHEMOGLOBIN 3.4 % (0.0-5.0); BG HCO3 ACT 10.7 mmol/L (22.0-26.0); BG METHEMOGLOBIN 0.3 % (0.0-1.5); BG OXYGEN SATURATION 96.6 % (92.0-98.5); BG PCO2 19.9 mmHg (35.0-45.0); BG PH 7.347 (7.350-7.450); BG PO2 88.2 mmHg (75.0-100.0); BG SAMPLE SITE RIGHT BRACHIAL; BG VENT MODE ROOM AIR
[2020-09-04] MEDS: SODIUM CHLORIDE 0.9% 1,000 ML IV SCH (15:26)
[2020-09-04] MEDS: FAMOTIDINE 20MG/2ML VIAL IV SCH (15:40)
[2020-09-04] MEDS ORDERED: SODIUM BICARBONATE 8.4% 1 MEQ/ML 50ML SYR IV NR (16:45)
[2020-09-04] MEDS ORDERED: MEROPENEM 500 MG in SODIUM CHLORIDE 0.9% 50 ML IV SCH (17:00)
[2020-09-04] MEDS: INSULIN LISPRO 100 UNITS/ML SUBCUT SCH ×2 (18:20→21:00)
[2020-09-04] MEDS: BLOOD SUGAR DIAGNOSTIC STRIP TEST SCH ×2 (18:55→21:19)
[2020-09-05] VITALS (12 sets, daily range): BP systolic 96–130; BP diastolic 21–86
[2020-09-05 07:33] LABS: BASOPHILS % 0.1 % (0.0-2.0); EOSINOPHILS % 0.1 % (0.0-5.0); HEMATOCRIT. 23.2 % (42.0-52.0); LYMPHOCYTES % 10.1 % (20.0-50.0); MEAN CORPUSCULAR HEMOGLOBIN 31.6 pg (28.0-32.0); MEAN CORPUSCULAR VOLUME 91.4 fL (80.0-94.0); MEAN PLATELET VOLUME 6.7 fl (7.4-10.4); MONOCYTES % 11.6 % (2.0-8.0); NEUTROPHILS % 78.1 % (40.0-76.0); PLATELET 366 x1000/uL (130-400); RED BLOOD CELL COUNT 2.54 mill/uL (4.7-6.1)
[2020-09-05] MEDS: INSULIN LISPRO 100 UNITS/ML SUBCUT SCH ×4 (08:00→20:56)
[2020-09-05 08:01] LABS: CHLORIDE 105 mEq/L (98-107)
[2020-09-05] MEDS: BLOOD SUGAR DIAGNOSTIC STRIP TEST SCH ×4 (08:05→20:57)
[2020-09-05 08:12] LABS: PHOSPHORUS 5.1 mg/dL (2.5-4.9)
[2020-09-05 08:13] LABS: CREATINE KINASE 428 IU/L (39-308); LDL CHOLESTEROL 73 mg/dL (5-100); T4 FREE 1.26 ng/dL (0.76-1.46)
[2020-09-05 08:14] LABS: CREATINE KINASE MB FRACTION 7.1 ng/mL (0.5-3.6)
[2020-09-05 08:15] LABS: HDL CHOLESTEROL 62 mg/dL (40-59)
[2020-09-05] MEDS: FAMOTIDINE 20MG/2ML VIAL IV SCH (08:38)
[2020-09-05] MEDS: MEROPENEM 500 MG in SODIUM CHLORIDE 0.9% 50 ML IV SCH ×2 (10:47→20:55)
[2020-09-05] MEDS: SODIUM CHLORIDE 0.9% 1,000 ML IV SCH (18:13)
[2020-09-06] VITALS (15 sets, daily range): BP systolic 99–141; BP diastolic 17–79
[2020-09-06] MEDS: SODIUM CHLORIDE 0.9% 1,000 ML IV SCH ×4 (03:32→15:43)
[2020-09-06 06:02] LABS: BASOPHILS % 0.4 % (0.0-2.0); EOSINOPHILS % 0.5 % (0.0-5.0); HEMATOCRIT. 22.4 % (42.0-52.0); HEMOGLOBIN. 7.3 g/dL (14.0-18.0); LYMPHOCYTES % 19.4 % (20.0-50.0); MEAN CORPUSCULAR HEMOGLOBIN 32.2 pg (28.0-32.0); MEAN CORPUSCULAR VOLUME 98.3 fL (80.0-94.0); MEAN PLATELET VOLUME 7.3 fl (7.4-10.4); MONOCYTES % 11.7 % (2.0-8.0); PLATELET 94 x1000/uL (130-400); RED BLOOD CELL COUNT 2.28 mill/uL (4.7-6.1); RED CELL DISTRIBUTION WIDTH 16.1 % (11.6-14.6)
[2020-09-06 07:12] LABS: *CREATININE RANDOM URINE 73.8 mg/dL (Not Estab.); MICROALBUMIN RANDOM URINE 608.9 ug/mL (Not Estab.)
[2020-09-06] MEDS: BLOOD SUGAR DIAGNOSTIC STRIP TEST SCH ×4 (07:44→20:59)
[2020-09-06] MEDS: INSULIN LISPRO 100 UNITS/ML SUBCUT SCH ×4 (07:45→20:59)
[2020-09-06] MEDS: MEROPENEM 500 MG in SODIUM CHLORIDE 0.9% 50 ML IV SCH ×2 (10:02→20:58)
[2020-09-06] MEDS: FAMOTIDINE 20MG/2ML VIAL IV SCH (10:51)
[2020-09-06] MEDS ORDERED: VANCOMYCIN 1 G PREMIX 200 ML IV NR (15:00)
[2020-09-06] MEDS: SODIUM BICARBONATE 650 MG TABLET PO SCH (15:49)
[2020-09-06 17:38] LABS: HEMATOCRIT 22.2 % (42.0-52.0); HEMOGLOBIN 7.4 g/dL (14.0-18.0)
[2020-09-06 17:45] LABS: INR 1.1; PROTHROMBIN TIME 11.3 sec (9.6-11.0)
[2020-09-07] VITALS (12 sets, daily range): BP systolic 111–157; BP diastolic 50–86
[2020-09-07 07:21] LABS: BASOPHILS % 0.2 % (0.0-2.0); EOSINOPHILS % 1.1 % (0.0-5.0); HEMATOCRIT. 27.6 % (42.0-52.0); HEMOGLOBIN. 9.2 g/dL (14.0-18.0); LYMPHOCYTES % 26.5 % (20.0-50.0); MEAN CORPUSCULAR HEMOGLOBIN 30.4 pg (28.0-32.0); MEAN CORPUSCULAR VOLUME 90.7 fL (80.0-94.0); MEAN PLATELET VOLUME 7.1 fl (7.4-10.4); MONOCYTES % 12.1 % (2.0-8.0); NEUTROPHILS % 60.1 % (40.0-76.0); PLATELET 319 x1000/uL (130-400); RED BLOOD CELL COUNT 3.04 mill/uL (4.7-6.1); RED CELL DISTRIBUTION WIDTH 16.6 % (11.6-14.6)
[2020-09-07] MEDS: BLOOD SUGAR DIAGNOSTIC STRIP TEST SCH ×4 (07:30→21:00)
[2020-09-07 07:39] LABS: CHLORIDE 119 mEq/L (98-107)
[2020-09-07 07:44] LABS: PHOSPHORUS 3.3 mg/dL (2.5-4.9)
[2020-09-07 08:30] LABS: BG BASE EXCESS -6.2 mmol/L (-2.0-2.0); BG CARBOXYHEMOGLOBIN 0.3 % (0.5-1.5); BG DEOXYHEMOGLOBIN 2.4 % (0.0-5.0); BG FRACTION INSPIRED OXYGEN 21; BG HCO3 ACT 17.3 mmol/L (22.0-26.0); BG METHEMOGLOBIN 0.3 % (0.0-1.5); BG OXYGEN SATURATION 97.6 % (92.0-98.5); BG PCO2 27.9 mmHg (35.0-45.0); BG PH 7.411 (7.350-7.450); BG PO2 107.9 mmHg (75.0-100.0); BG SAMPLE SITE RIGHT RADIAL; BG TOTAL HEMOGLOBIN 9.8 g/dL (12.0-18.0); BG VENT MODE ROOM AIR
[2020-09-07] MEDS: SODIUM BICARBONATE 650 MG TABLET PO SCH ×3 (08:59→13:58)
[2020-09-07] MEDS: MEROPENEM 500 MG in SODIUM CHLORIDE 0.9% 50 ML IV SCH (08:59)
[2020-09-07] MEDS: FAMOTIDINE 20MG/2ML VIAL IV SCH (08:59)
[2020-09-07] MEDS: INSULIN LISPRO 100 UNITS/ML SUBCUT SCH ×4 (09:02→22:00)
[2020-09-07] MEDS: SODIUM CHLORIDE 0.9% 1,000 ML IV SCH ×2 (09:12→16:05)
[2020-09-07] MEDS ORDERED: MAGNESIUM 2 G PREMIX 50 ML IV NR (13:00)
[2020-09-07] MEDS ORDERED: MAGNESIUM 1 G PREMIX 100 ML IV NR (15:30)
[2020-09-07] MEDS: MEROPENEM 1000MG in NORMAL SALINE 100ML IV SCH (22:01)
[2020-09-08] VITALS: BP 125/68
[2020-09-08 04:00] VITALS: BP 111/69
[2020-09-08] MEDS: SODIUM CHLORIDE 0.9% 1,000 ML IV SCH (05:06)
[2020-09-08] MEDS: BLOOD SUGAR DIAGNOSTIC STRIP TEST SCH ×3 (07:20→17:43)
[2020-09-08] MEDS ORDERED: LIDOCAINE HCL 1% 20ML VIAL (Pyxis) INJ ONE (07:34)
[2020-09-08] MEDS: INSULIN LISPRO 100 UNITS/ML SUBCUT SCH ×3 (07:50→17:43)
[2020-09-08] MEDS: FAMOTIDINE 20MG/2ML VIAL IV SCH (08:49)
[2020-09-08] MEDS: MEROPENEM 1000MG in NORMAL SALINE 100ML IV SCH (08:49)
[2020-09-08 15:59] LABS: PHOSPHORUS 2.7 mg/dL (2.5-4.9)
[2020-09-08 16:00] VITALS: BP 103/54
[2020-09-08] MEDS ORDERED: MAGNESIUM 1 G PREMIX 100 ML IV NR (17:00)
[2020-09-08 17:17] LABS: BASOPHILS % 0.2 % (0.0-2.0); EOSINOPHILS % 1.9 % (0.0-5.0); HEMATOCRIT. 28.7 % (42.0-52.0); HEMOGLOBIN. 9.5 g/dL (14.0-18.0); LYMPHOCYTES % 19.2 % (20.0-50.0); MEAN CORPUSCULAR HEMOGLOBIN 30.3 pg (28.0-32.0); MEAN PLATELET VOLUME 6.9 fl (7.4-10.4); MONOCYTES % 10.6 % (2.0-8.0); NEUTROPHILS % 68.1 % (40.0-76.0); PLATELET 321 x1000/uL (130-400); RED BLOOD CELL COUNT 3.12 mill/uL (4.7-6.1); RED CELL DISTRIBUTION WIDTH 16.9 % (11.6-14.6)
[2020-09-08 19:44] VITALS: BP 113/54
== END 2020-09-08 20:35 | DRG 871 ==
LOC: ER 09:43 → EDBEDREQ 11:00 → EDBEDREQSVC 11:00 → MICUSO 14:35 → EDBEDREQ 14:39 → EDBEDREQTM 14:39 → 5EST 09-05 00:21 → 6WST 09-07 13:11
PROVIDERS: ADMIT Internal Medicine; ATTEND Internal Medicine
PROC: 30233N1 Transfusion of Nonautologous Red Blood Cells into Peripheral Vein, Percutaneous Approach (ICD-10-PCS; 2020-09-06)
PROC: 02HV33Z Insertion of Infusion Device into Superior Vena Cava, Percutaneous Approach (ICD-10-PCS; principal; 2020-09-08)
PROC: B518ZZA Fluoroscopy of Superior Vena Cava, Guidance (ICD-10-PCS; 2020-09-08)
PROC: B548ZZA Ultrasonography of Superior Vena Cava, Guidance (ICD-10-PCS; 2020-09-08)
DX: A41.50 Gram-negative sepsis, unspecified (principal); N17.0 Acute kidney failure with tubular necrosis; E87.1 Hypo-osmolality and hyponatremia; G82.20 Paraplegia, unspecified; G95.20 Unspecified cord compression; N13.6 Pyonephrosis; E87.2 Acidosis; D64.9 Anemia, unspecified; E11.22 Type 2 diabetes mellitus with diabetic chronic kidney disease; E87.5 Hyperkalemia; F03.90 Unspecified dementia, unspecified severity, without behavioral disturbance, psychotic disturbance, mood disturbance, and anxiety; N18.30 Chronic kidney disease, stage 3 unspecified; N32.0 Bladder-neck obstruction; N40.0 Benign prostatic hyperplasia without lower urinary tract symptoms; M48.02 Spinal stenosis, cervical region; K40.90 Unilateral inguinal hernia, without obstruction or gangrene, not specified as recurrent; Z20.822 Contact with and (suspected) exposure to COVID-19; I12.9 Hypertensive chronic kidney disease with stage 1 through stage 4 chronic kidney disease, or unspecified chronic kidney disease; G89.29 Other chronic pain; Z83.3 Family history of diabetes mellitus; Z99.3 Dependence on wheelchair; Z79.899 Other long term (current) drug therapy; Z86.73 Personal history of transient ischemic attack (TIA), and cerebral infarction without residual deficits; Z87.891 Personal history of nicotine dependence; W19.XXXA Unspecified fall, initial encounter
CPT/HCPCS: 36415; 36573; 36600; 71045; 72141; 72146; 72148; 74176; 80048; 80053; 80061; 80202; 81003; 82010; 82043; 82375; 82550; 82553; 82570; 82805; 82962; 83036; 83605; 83735; 83880; 83935; 84100; 84145; 84153; 84300; 84439; 84443; 84484; 85014; 85018; 85025; 85049; 85384; 86850; 86900; 86920; 87077; 87186; 87426; 93005; 93306; 93970; 97162; 99291; C1725; J0610; J1815; J2185; J2543; J3370; J3475; J3490; J7030; J7060; P9016; G0103

== ENCOUNTER 2021-09-22 19:13 | Emergency (ER) | payer MEDICARE, MEDICAID ==
[~2021-09-22] VITALS: Ht 167.6 cm; Wt 65.0 kg
[2021-09-22 20:15] LABS: BASOPHILS % 0.4 % (0.0-2.0); EOSINOPHILS % 4.2 % (0.0-5.0); HEMATOCRIT. 34.8 % (42.0-52.0); HEMOGLOBIN. 11.3 g/dL (14.0-18.0); LYMPHOCYTES % 30.9 % (20.0-50.0); MEAN CORPUSCULAR HEMOGLOBIN 30.4 pg (28.0-32.0); MEAN CORPUSCULAR VOLUME 93.8 fL (80.0-94.0); MEAN PLATELET VOLUME 8.2 fl (7.4-10.4); MONOCYTES % 9.3 % (2.0-8.0); NEUTROPHILS % 55.2 % (40.0-76.0); PLATELET 252 x1000/uL (130-400); RED BLOOD CELL COUNT 3.71 mill/uL (4.7-6.1); RED CELL DISTRIBUTION WIDTH 14.5 % (11.6-14.6)
[2021-09-22 20:22] LABS: CHLORIDE 111 mEq/L (98-107)
[2021-09-22 21:38] LABS: CLARITY URINE CLOUDY (CLEAR); COLOR URINE YELLOW (YELLOW); KETONES URINE NEGATIVE (NEGATIVE); LEUKOCYTE ESTERASE URINE 3+ (NEGATIVE); NITRITE URINE NEGATIVE (NEGATIVE); OCCULT BLOOD URINE 3+ (NEGATIVE); PH URINE >=9.0 (4.5-8.0); PROTEIN URINE 2+ (NEGATIVE); SPECIFIC GRAVITY URINE 1.012 (1.005-1.030)
[2021-09-22] MEDS ORDERED: CEPH500C2 MT (22:33)
[2021-09-22] MEDS ORDERED: POTA10TA20 MT (22:34)
[2021-09-22] MEDS ORDERED: FURO-151 MT (22:34)
[2021-09-22] MEDS ORDERED: FAMO20TA8 PO (22:34)
[2021-09-23 07:36] VITALS: BP 169/88
== END 2021-09-23 07:59 | disposition home or self-care (01) ==
LOC: ER 19:13
DX: T83.021A Displacement of indwelling urethral catheter, initial encounter (principal); N30.00 Acute cystitis without hematuria; R33.9 Retention of urine, unspecified; I10 Essential (primary) hypertension; E11.9 Type 2 diabetes mellitus without complications; Z86.73 Personal history of transient ischemic attack (TIA), and cerebral infarction without residual deficits; Y84.6 Urinary catheterization as the cause of abnormal reaction of the patient, or of later complication, without mention of misadventure at the time of the procedure; Y92.018 Other place in single-family (private) house as the place of occurrence of the external cause
CPT/HCPCS: 36415; 80053; 81003; 85025; 87077; 87186; 99283; A4315

== ENCOUNTER 2021-11-11 13:59 | Emergency (ER) | payer OTHER, MEDICAID ==
[~2021-11-11] VITALS: Ht 162.6 cm; Wt 60.0 kg
[~2021-11-11 13:59] MED LIST changes: +CEPH500C2 MT; +FAMO20TA8 PO; +FURO-151 MT; +POTA10TA20 MT
[2021-11-11] MEDS ORDERED: HYDROCODONE/ACETAMINOPHEN 5/325MG TABLET PO ONE (15:15)
[2021-11-11 15:48] LABS: CLARITY URINE TURBID (CLEAR); COLOR URINE RED (YELLOW); KETONES URINE NEGATIVE (NEGATIVE); LEUKOCYTE ESTERASE URINE 3+ (NEGATIVE); NITRITE URINE POSITIVE (NEGATIVE); OCCULT BLOOD URINE 3+ (NEGATIVE); PH URINE >=9.0 (4.5-8.0); PROTEIN URINE 2+ (NEGATIVE); SPECIFIC GRAVITY URINE 1.015 (1.005-1.030); UROBILINOGEN URINE 0.2 E.U./dL (0.2-1.0)
[2021-11-11 16:36] LABS: BASOPHILS % 0.3 % (0.0-2.0); EOSINOPHILS % 1.3 % (0.0-5.0); HEMATOCRIT. 33.8 % (42.0-52.0); HEMOGLOBIN. 11.2 g/dL (14.0-18.0); LYMPHOCYTES % 12.3 % (20.0-50.0); MEAN CORPUSCULAR HEMOGLOBIN 30.4 pg (28.0-32.0); MEAN CORPUSCULAR VOLUME 91.9 fL (80.0-94.0); MEAN PLATELET VOLUME 8.5 fl (7.4-10.4); MONOCYTES % 5.3 % (2.0-8.0); NEUTROPHILS % 80.8 % (40.0-76.0); PLATELET 204 x1000/uL (130-400); RED BLOOD CELL COUNT 3.67 mill/uL (4.7-6.1); RED CELL DISTRIBUTION WIDTH 16.1 % (11.6-14.6)
[2021-11-11 16:53] LABS: CHLORIDE 112 mEq/L (98-107)
[2021-11-11] MEDS ORDERED: CEFTRIAXONE SODIUM 1 G/VIAL IM ONE (17:15)
[2021-11-11] MEDS ORDERED: LIDOCAINE HCL 1% 20ML VIAL (Pyxis) INJ INFIL ONE (17:15)
[2021-11-11] MEDS ORDERED: CIPR-263 MT (18:08)
[2021-11-12 01:00] VITALS: BP 135/75
== END 2021-11-12 01:15 | disposition home or self-care (01) ==
LOC: ER 14:15
DX: R33.9 Retention of urine, unspecified (principal); N39.0 Urinary tract infection, site not specified; E11.9 Type 2 diabetes mellitus without complications; I10 Essential (primary) hypertension; Z86.73 Personal history of transient ischemic attack (TIA), and cerebral infarction without residual deficits; Z79.899 Other long term (current) drug therapy
CPT/HCPCS: 36415; 80053; 81003; 85025; 87077; 87086; 87186; 96372; 99285; J0696; J3490; A4315

== ENCOUNTER 2022-03-11 23:32 | Inpatient (IN) | payer OTHER, MEDICAID ==
[~2022-03-11] VITALS: Ht 167.6 cm; Wt 66.7 kg
[~2022-03-11 23:32] MED LIST changes: +CIPR-263 MT
[2022-03-12] MEDS ORDERED: ACETAMINOPHEN 325MG TABLET PO ONE (05:30)
[2022-03-12 06:03] LABS: BASOPHILS % 0.2 % (0.0-2.0); EOSINOPHILS % 3.6 % (0.0-5.0); HEMATOCRIT. 35.6 % (42.0-52.0); HEMOGLOBIN. 12.2 g/dL (14.0-18.0); MEAN CORPUSCULAR HEMOGLOBIN 32.2 pg (28.0-32.0); MEAN CORPUSCULAR VOLUME 94.2 fL (80.0-94.0); MEAN PLATELET VOLUME 8.1 fl (7.4-10.4); MONOCYTES % 6.4 % (2.0-8.0); NEUTROPHILS % 68.8 % (40.0-76.0); PLATELET 299 x1000/uL (130-400); RED BLOOD CELL COUNT 3.78 mill/uL (4.7-6.1); RED CELL DISTRIBUTION WIDTH 15.1 % (11.6-14.6)
[2022-03-12 06:09] LABS: CHLORIDE 105 mEq/L (98-107)
[2022-03-12 07:27] LABS: CLARITY URINE CLEAR (CLEAR); COLOR URINE ORANGE (YELLOW); KETONES URINE NEGATIVE (NEGATIVE); LEUKOCYTE ESTERASE URINE 2+ (NEGATIVE); NITRITE URINE NEGATIVE (NEGATIVE); OCCULT BLOOD URINE 3+ (NEGATIVE); PH URINE 7.5 (4.5-8.0); PROTEIN URINE 2+ (NEGATIVE); SPECIFIC GRAVITY URINE 1.008 (1.005-1.030)
[2022-03-12] MEDS ORDERED: CEFTRIAXONE 1 G PREMIX 50 ML IV ONE (07:30)
[2022-03-12] MEDS ORDERED: HYDRALAZINE 20MG/ML VIAL IV ONE (11:00)
[2022-03-12] MEDS ORDERED: ONDANSETRON HCL 4MG/2ML INJ IV PRN (14:00)
[2022-03-12] MEDS ORDERED: IPRATROPIUM/ALBUTEROL 0.5-3(2.5)MG/3ML NEB HHN PRN (14:00)
[2022-03-12] MEDS: CLONIDINE 0.1MG TABLET PO PRN (14:53)
[2022-03-12] MEDS ORDERED: LEVOFLOXACIN 500MG PREMIX 100 ML IV SCH (15:00)
[2022-03-12 15:50] VITALS: BP 158/121
[2022-03-12 16:00] VITALS: BP 132/98
[2022-03-12 20:00] VITALS: BP 136/81
[2022-03-12 23:37] LABS: CREATINE KINASE MB FRACTION 1.5 ng/mL (0.5-3.6)
[2022-03-13 08:00] VITALS: BP 154/80
[2022-03-13] MEDS: CLONIDINE 0.1MG TABLET PO PRN (09:00)
[2022-03-13 12:00] VITALS: BP 138/76
[2022-03-13] MEDS: LEVOFLOXACIN 500MG TABLET PO SCH (14:36)
[2022-03-13 16:00] VITALS: BP 129/90
[2022-03-13 18:01] LABS: *AMPHETAMINES SCREEN URINE NEGATIVE (NEGATIVE); *BARBITURATES SCREEN URINE NEGATIVE (NEGATIVE); *BENZODIAZEPINES SCREEN URINE NEGATIVE (NEGATIVE); *COCAINE SCREEN URINE NEGATIVE (NEGATIVE); CANNABINOID URINE SCREEN NEGATIVE (NEGATIVE); METHADONE URINE SCREEN NEGATIVE (NEGATIVE); OPIATES URINE SCREEN PRESUMTIVE POSITIVE (NEGATIVE); PHENCYCLIDINE URINE SCREEN NEGATIVE (NEGATIVE)
[2022-03-13 20:00] VITALS: BP 145/83
[2022-03-14] VITALS: BP 128/81
[2022-03-14 04:00] VITALS: BP 136/73
[2022-03-14 06:57] LABS: BASOPHILS % 0.4 % (0.0-2.0); EOSINOPHILS % 6.8 % (0.0-5.0); HEMATOCRIT. 32.7 % (42.0-52.0); LYMPHOCYTES % 26.1 % (20.0-50.0); MEAN PLATELET VOLUME 8.4 fl (7.4-10.4); MONOCYTES % 8.7 % (2.0-8.0); PLATELET 262 x1000/uL (130-400); RED BLOOD CELL COUNT 3.44 mill/uL (4.7-6.1); RED CELL DISTRIBUTION WIDTH 15.3 % (11.6-14.6)
[2022-03-14 07:33] LABS: CHLORIDE 106 mEq/L (98-107)
[2022-03-14] MEDS: ACETAMINOPHEN 650MG/20.3ML UDC GT PRN (08:58)
[2022-03-14] MEDS: LEVOFLOXACIN 500MG TABLET PO SCH (13:27)
[2022-03-14 20:00] VITALS: BP 117/68
[2022-03-15] VITALS (7 sets, daily range): BP systolic 140–180; BP diastolic 65–98
[2022-03-15] MEDS: LEVOFLOXACIN 500MG TABLET PO SCH (08:37)
[2022-03-15 09:05] LABS: BASOPHILS % 0.4 % (0.0-2.0); EOSINOPHILS % 6.3 % (0.0-5.0); HEMATOCRIT. 35.2 % (42.0-52.0); HEMOGLOBIN. 11.9 g/dL (14.0-18.0); LYMPHOCYTES % 26.1 % (20.0-50.0); MEAN CORPUSCULAR HEMOGLOBIN 32.1 pg (28.0-32.0); MEAN CORPUSCULAR VOLUME 94.9 fL (80.0-94.0); MEAN PLATELET VOLUME 8.4 fl (7.4-10.4); MONOCYTES % 7.6 % (2.0-8.0); NEUTROPHILS % 59.6 % (40.0-76.0); PLATELET 287 x1000/uL (130-400); RED BLOOD CELL COUNT 3.71 mill/uL (4.7-6.1); RED CELL DISTRIBUTION WIDTH 15.2 % (11.6-14.6)
[2022-03-15] MEDS: ACETAMINOPHEN 650MG/20.3ML UDC GT PRN (09:14)
[2022-03-15 09:35] LABS: CHLORIDE 101 mEq/L (98-107)
[2022-03-15 09:47] LABS: HDL CHOLESTEROL 50 mg/dL (40-59); LDL CHOLESTEROL 121 mg/dL (5-100)
[2022-03-15 10:04] LABS: VITAMIN B12 SERUM 522 pg/mL (211-911)
[2022-03-15] MEDS ORDERED: ASPIRIN 81MG TABLET PO NR (11:30)
[2022-03-15] MEDS: ATORVASTATIN CALCIUM 40MG TABLET PO SCH (21:16)
[2022-03-16] VITALS (7 sets, daily range): BP systolic 117–169; BP diastolic 54–97
[2022-03-16] MEDS: CLONIDINE 0.1MG TABLET PO PRN (02:54)
[2022-03-16 11:38] LABS: PROTHROMBIN TIME 10.9 sec (9.6-11.0)
[2022-03-16] MEDS: LEVOFLOXACIN 500MG TABLET PO SCH (11:58)
[2022-03-16] MEDS: ATORVASTATIN CALCIUM 40MG TABLET PO SCH (22:10)
[2022-03-17 04:00] VITALS: BP 135/80
[2022-03-17 08:00] VITALS: BP 158/85
[2022-03-17 12:00] VITALS: BP 154/81
[2022-03-17] MEDS: LEVOFLOXACIN 500MG TABLET PO SCH (12:00)
[2022-03-17] MEDS: ACETAMINOPHEN 650MG/20.3ML UDC GT PRN (12:59)
[2022-03-17 16:00] VITALS: BP 130/80
[2022-03-17 20:00] VITALS: BP 118/88
[2022-03-17] MEDS: ATORVASTATIN CALCIUM 40MG TABLET PO SCH (21:49)
[2022-03-18] VITALS: BP 138/88
[2022-03-18 04:00] VITALS: BP 158/84
[2022-03-18 08:00] VITALS: BP 127/92
[2022-03-18 12:00] VITALS: BP 135/89
[2022-03-18 16:00] VITALS: BP 137/89
[2022-03-18 20:00] VITALS: BP 130/83
[2022-03-18] MEDS: ATORVASTATIN CALCIUM 40MG TABLET PO SCH (20:41)
[2022-03-19] VITALS (48 sets, daily range): BP systolic 65–138; BP diastolic 31–80
[2022-03-19] MEDS ORDERED: THROMBIN (BOVINE) 5000 UNITS/VIAL TOP ONE (07:35)
[2022-03-19] MEDS ORDERED: GENTAMICIN SULF 40MG/ML 2ML VIAL ONE (07:35)
[2022-03-19] MEDS ORDERED: DEXAMETHASONE 4MG/ML 1ML VIAL ONE (08:54)
[2022-03-19] MEDS ORDERED: CEFAZOLIN SODIUM 1000MG/VIAL ONE (08:54)
[2022-03-19] MEDS ORDERED: LIDOCAINE HCL 1% 10 MG/ML 10ML VIAL ONE (08:54)
[2022-03-19] MEDS ORDERED: GLYCOPYRROLATE 0.2 MG/ML 2ML VIAL ONE ×3 (08:55→11:15)
[2022-03-19] MEDS ORDERED: PROPOFOL 200MG/20ML VIAL IV ONE (08:55)
[2022-03-19] MEDS ORDERED: FENTANYL CITRATE/PF 50MCG/ML 2ML VIAL ONE (08:56)
[2022-03-19] MEDS ORDERED: MIDAZOLAM HCL 2 MG/2 ML VIAL ONE (08:56)
[2022-03-19] MEDS ORDERED: ROCURONIUM BROMIDE 10MG/ML VIAL 5ML IV ONE (08:58)
[2022-03-19] MEDS: DEXT 5%/LACTATED RINGERS 1,000 ML IV SCH ×2 (09:30→18:30)
[2022-03-19] MEDS ORDERED: HYDROMORPHONE HCL/PF 2MG/ML CPJ ONE (09:37)
[2022-03-19] MEDS ORDERED: LABETALOL HCL 5MG/ML VIAL 20ML IV ONE (09:40)
[2022-03-19] MEDS ORDERED: NALOXONE HCL 0.4MG/ML VIAL IV PRN (09:45)
[2022-03-19] MEDS ORDERED: HYDROMORPHONE HCL/PF 2MG/ML CPJ IV PRN (10:00)
[2022-03-19] MEDS ORDERED: LABETALOL 5MG/ML SYR 20 MG/4 ML SYRINGE IV PRN (10:00)
[2022-03-19] MEDS ORDERED: ONDANSETRON HCL 4MG/2ML INJ IV PRN (10:00)
[2022-03-19] MEDS ORDERED: MEPERIDINE HCL/PF 25MG/ML CPJ IV PRN (10:00)
[2022-03-19] MEDS ORDERED: NEOSTIGMINE METHYLSULFATE 1MG/ML 10 ML VIAL ONE (10:14)
[2022-03-19] MEDS ORDERED: CEFAZOLIN SODIUM 1000MG/VIAL IV SCH (14:00)
[2022-03-19] MEDS: NICARDIPINE 100 MG in SODIUM CHLORIDE 0.9% 60 ML IV PRN (14:20)
[2022-03-19] MEDS: CEFAZOLIN 1000MG PREMIX 50 ML IV SCH ×2 (14:38→22:12)
[2022-03-19 16:27] LABS: HEMATOCRIT. 34.7 % (42.0-52.0); HEMOGLOBIN. 11.6 g/dL (14.0-18.0); MEAN CORPUSCULAR HEMOGLOBIN 32.1 pg (28.0-32.0); MEAN CORPUSCULAR VOLUME 96.4 fL (80.0-94.0); MEAN PLATELET VOLUME 8.2 fl (7.4-10.4); PLATELET 283 x1000/uL (130-400); RED CELL DISTRIBUTION WIDTH 15.5 % (11.6-14.6)
[2022-03-19 16:33] LABS: CHLORIDE 105 mEq/L (98-107)
[2022-03-19] MEDS: MORPHINE SULFATE 4 MG/ML CPJ (NOT FOR IM USE) IV PRN ×2 (17:07→22:21)
[2022-03-19 17:26] LABS: PLATELET ESTIMATE NORMAL
[2022-03-19] MEDS: ATORVASTATIN CALCIUM 40MG TABLET PO SCH (20:37)
[2022-03-20] VITALS (76 sets, daily range): BP systolic 73–156; BP diastolic 53–92
[2022-03-20] MEDS: DEXT 5%/LACTATED RINGERS 1,000 ML IV SCH ×2 (05:30→13:29)
[2022-03-20] MEDS: CEFAZOLIN 1000MG PREMIX 50 ML IV SCH ×3 (05:30→22:14)
[2022-03-20] MEDS: MORPHINE SULFATE 4 MG/ML CPJ (NOT FOR IM USE) IV PRN (05:43)
[2022-03-20] MEDS: NICARDIPINE 100 MG in SODIUM CHLORIDE 0.9% 60 ML IV PRN (08:44)
[2022-03-20] MEDS: LOSARTAN POTASSIUM 50 MG TABLET PO SCH (09:46)
[2022-03-20] MEDS: AMLODIPINE 5MG TABLET PO SCH ×2 (09:46→22:14)
[2022-03-20 21:00] LABS: BASOPHILS % 0.1 % (0.0-2.0); HEMATOCRIT. 36.5 % (42.0-52.0); HEMOGLOBIN. 11.9 g/dL (14.0-18.0); LYMPHOCYTES % 7.2 % (20.0-50.0); MEAN CORPUSCULAR HEMOGLOBIN 31.7 pg (28.0-32.0); MEAN CORPUSCULAR VOLUME 96.8 fL (80.0-94.0); MONOCYTES % 6.7 % (2.0-8.0); RED BLOOD CELL COUNT 3.77 mill/uL (4.7-6.1); RED CELL DISTRIBUTION WIDTH 15.6 % (11.6-14.6)
[2022-03-20 21:16] LABS: CHLORIDE 106 mEq/L (98-107)
[2022-03-20] MEDS ORDERED: LIDOCAINE HCL 1% 20ML VIAL (Pyxis) INJ INFIL NR (21:30)
[2022-03-20 21:46] LABS: MEAN PLATELET VOLUME 8.8 fl (7.4-10.4); PLATELET 261 x1000/uL (130-400)
[2022-03-20] MEDS: ATORVASTATIN CALCIUM 40MG TABLET PO SCH (22:14)
[2022-03-21] VITALS (54 sets, daily range): BP systolic 116–177; BP diastolic 68–98
[2022-03-21] MEDS ORDERED: NICARDIPINE 100 MG in SODIUM CHLORIDE 0.9% 60 ML IV PRN (00:34)
[2022-03-21] MEDS: MORPHINE SULFATE 4 MG/ML CPJ (NOT FOR IM USE) IV PRN (02:54)
[2022-03-21] MEDS: CEFAZOLIN 1000MG PREMIX 50 ML IV SCH ×2 (05:40→13:37)
[2022-03-21] MEDS ORDERED: DIAZEPAM 5 MG/ML 2ML CPJ IV NR (07:15)
[2022-03-21] MEDS ORDERED: LIDOCAINE HCL/PF 1% 10 MG/ML 5ML VIAL ONE (07:39)
[2022-03-21] MEDS: AMLODIPINE 5MG TABLET PO SCH ×2 (08:32→22:51)
[2022-03-21] MEDS: LOSARTAN POTASSIUM 50 MG TABLET PO SCH (08:33)
[2022-03-21] MEDS: DEXT 5%/LACTATED RINGERS 1,000 ML IV SCH ×3 (09:20→21:05)
[2022-03-21] MEDS: METOPROLOL TARTRATE 25MG TABLET PO SCH ×2 (10:26→21:03)
[2022-03-21 12:34] LABS: HEMATOCRIT. 33.9 % (42.0-52.0); HEMOGLOBIN. 11.2 g/dL (14.0-18.0); MEAN CORPUSCULAR HEMOGLOBIN 31.6 pg (28.0-32.0); MEAN CORPUSCULAR VOLUME 95.4 fL (80.0-94.0); MEAN PLATELET VOLUME 8.6 fl (7.4-10.4); PLATELET 305 x1000/uL (130-400); RED BLOOD CELL COUNT 3.55 mill/uL (4.7-6.1); RED CELL DISTRIBUTION WIDTH 15.9 % (11.6-14.6)
[2022-03-21 12:54] LABS: CHLORIDE 103 mEq/L (98-107)
[2022-03-21 13:03] LABS: PLATELET ESTIMATE NORMAL
[2022-03-21] MEDS: ATORVASTATIN CALCIUM 40MG TABLET PO SCH (21:03)
[2022-03-22] VITALS (8 sets, daily range): BP systolic 100–145; BP diastolic 57–84
[2022-03-22] MEDS: DEXT 5%/LACTATED RINGERS 1,000 ML IV SCH ×2 (06:31→17:10)
[2022-03-22] MEDS: METOPROLOL TARTRATE 25MG TABLET PO SCH ×2 (08:43→20:36)
[2022-03-22] MEDS: LOSARTAN POTASSIUM 100 MG TABLET PO SCH (08:43)
[2022-03-22] MEDS: AMLODIPINE 5MG TABLET PO SCH ×2 (08:43→20:36)
[2022-03-22] MEDS ORDERED: LACTULOSE 20G/30ML UDC PO NR (13:45)
[2022-03-22] MEDS: HYDROCODONE/ACETAMINOPHEN 5/325MG TABLET PO PRN (13:54)
[2022-03-22] MEDS ORDERED: BISACODYL 5MG TABLET PO PRN (15:30)
[2022-03-22] MEDS: ATORVASTATIN CALCIUM 40MG TABLET PO SCH (20:36)
[2022-03-23 04:00] VITALS: BP 121/79
[2022-03-23] MEDS: DOCUSATE SODIUM 100MG CAPSULE PO SCH ×3 (04:06→17:15)
[2022-03-23] MEDS: HYDROCODONE/ACETAMINOPHEN 5/325MG TABLET PO PRN (04:35)
[2022-03-23 08:00] VITALS: BP 102/67
[2022-03-23] MEDS: LOSARTAN POTASSIUM 100 MG TABLET PO SCH (09:28)
[2022-03-23] MEDS: METOPROLOL TARTRATE 25MG TABLET PO SCH ×2 (09:28→20:58)
[2022-03-23] MEDS: ACETAMINOPHEN 650MG/20.3ML UDC GT PRN (09:28)
[2022-03-23] MEDS: AMLODIPINE 5MG TABLET PO SCH ×2 (09:28→20:58)
[2022-03-23 12:00] VITALS: BP 103/64
[2022-03-23] MEDS: DEXT 5%/LACTATED RINGERS 1,000 ML IV SCH (15:10)
[2022-03-23 16:00] VITALS: BP 110/61
[2022-03-23 20:00] VITALS: BP 129/66
[2022-03-23] MEDS: ATORVASTATIN CALCIUM 40MG TABLET PO SCH (20:58)
[2022-03-23 23:54] VITALS: BP 120/62
[2022-03-24 04:00] VITALS: BP 116/58
[2022-03-24 06:03] LABS: BASOPHILS % 0.2 % (0.0-2.0); EOSINOPHILS % 0.2 % (0.0-5.0); HEMATOCRIT. 33.2 % (42.0-52.0); HEMOGLOBIN. 11.1 g/dL (14.0-18.0); LYMPHOCYTES % 13.8 % (20.0-50.0); MEAN CORPUSCULAR HEMOGLOBIN 31.6 pg (28.0-32.0); MEAN CORPUSCULAR VOLUME 94.6 fL (80.0-94.0); MEAN PLATELET VOLUME 8.4 fl (7.4-10.4); MONOCYTES % 6.7 % (2.0-8.0); NEUTROPHILS % 79.1 % (40.0-76.0); PLATELET 315 x1000/uL (130-400); RED BLOOD CELL COUNT 3.51 mill/uL (4.7-6.1); RED CELL DISTRIBUTION WIDTH 15.1 % (11.6-14.6)
[2022-03-24 06:38] LABS: CHLORIDE 102 mEq/L (98-107)
[2022-03-24] MEDS ORDERED: IOHEXOL-300 100 ML BOTTLE ONE (07:59)
[2022-03-24] MEDS ORDERED: LIDOCAINE HCL/PF 1% 10 MG/ML 5ML VIAL ONE (07:59)
[2022-03-24 08:00] VITALS: BP 120/77
[2022-03-24] MEDS: AMLODIPINE 5MG TABLET PO SCH ×2 (10:47→21:38)
[2022-03-24] MEDS: LOSARTAN POTASSIUM 100 MG TABLET PO SCH (10:47)
[2022-03-24] MEDS: DOCUSATE SODIUM 100MG CAPSULE PO SCH ×2 (10:47→17:20)
[2022-03-24] MEDS: METOPROLOL TARTRATE 25MG TABLET PO SCH ×2 (10:48→21:39)
[2022-03-24 12:00] VITALS: BP 123/74
[2022-03-24] MEDS: DEXT 5%/LACTATED RINGERS 1,000 ML IV SCH (12:02)
[2022-03-24 16:00] VITALS: BP 113/74
[2022-03-24 20:50] VITALS: BP 135/72
[2022-03-24] MEDS: ATORVASTATIN CALCIUM 40MG TABLET PO SCH (21:39)
[2022-03-24] MEDS: HYDROCODONE/ACETAMINOPHEN 5/325MG TABLET PO PRN (21:42)
[2022-03-25] VITALS (7 sets, daily range): BP systolic 96–133; BP diastolic 58–85
[2022-03-25] MEDS: DEXT 5%/LACTATED RINGERS 1,000 ML IV SCH ×2 (02:36→05:30)
[2022-03-25 07:25] LABS: BASOPHILS % 0.3 % (0.0-2.0); EOSINOPHILS % 0.4 % (0.0-5.0); HEMATOCRIT. 29.9 % (42.0-52.0); LYMPHOCYTES % 20.9 % (20.0-50.0); MEAN CORPUSCULAR HEMOGLOBIN 31.3 pg (28.0-32.0); MEAN PLATELET VOLUME 7.7 fl (7.4-10.4); NEUTROPHILS % 68.4 % (40.0-76.0); PLATELET 311 x1000/uL (130-400); RED BLOOD CELL COUNT 3.18 mill/uL (4.7-6.1); RED CELL DISTRIBUTION WIDTH 14.8 % (11.6-14.6)
[2022-03-25 07:47] LABS: CHLORIDE 103 mEq/L (98-107)
[2022-03-25] MEDS: DOCUSATE SODIUM 100MG CAPSULE PO SCH ×2 (08:42→16:25)
[2022-03-25] MEDS: METOPROLOL TARTRATE 25MG TABLET PO SCH ×2 (08:47→20:46)
[2022-03-25] MEDS: LOSARTAN POTASSIUM 50 MG TABLET PO SCH (08:47)
[2022-03-25] MEDS: AMLODIPINE 2.5MG TABLET PO SCH ×2 (08:48→20:46)
[2022-03-25] MEDS: TAMSULOSIN HCL 0.4MG SR CAPSULE PO SCH (17:48)
[2022-03-25] MEDS: FINASTERIDE 5MG TABLET PO SCH (17:48)
[2022-03-25] MEDS: ATORVASTATIN CALCIUM 40MG TABLET PO SCH (20:46)
[2022-03-26 08:00] VITALS: BP 97/63
[2022-03-26] MEDS: HYDROCODONE/ACETAMINOPHEN 5/325MG TABLET PO PRN ×2 (08:11→17:44)
[2022-03-26] MEDS: AMLODIPINE 2.5MG TABLET PO SCH (09:00)
[2022-03-26] MEDS: LOSARTAN POTASSIUM 50 MG TABLET PO SCH (09:00)
[2022-03-26] MEDS: METOPROLOL TARTRATE 25MG TABLET PO SCH (09:00)
[2022-03-26] MEDS: DOCUSATE SODIUM 100MG CAPSULE PO SCH ×2 (10:11→17:44)
[2022-03-26] MEDS: FINASTERIDE 5MG TABLET PO SCH (10:12)
[2022-03-26] MEDS: TAMSULOSIN HCL 0.4MG SR CAPSULE PO SCH (10:12)
[2022-03-26 12:20] VITALS: BP 105/63
[2022-03-26 13:33] LABS: BASOPHILS % 0.3 % (0.0-2.0); EOSINOPHILS % 1.1 % (0.0-5.0); HEMATOCRIT. 29.5 % (42.0-52.0); HEMOGLOBIN. 9.8 g/dL (14.0-18.0); LYMPHOCYTES % 18.8 % (20.0-50.0); MEAN CORPUSCULAR HEMOGLOBIN 31.8 pg (28.0-32.0); MEAN CORPUSCULAR VOLUME 95.6 fL (80.0-94.0); MONOCYTES % 9.6 % (2.0-8.0); NEUTROPHILS % 70.2 % (40.0-76.0); PLATELET 337 x1000/uL (130-400); RED BLOOD CELL COUNT 3.09 mill/uL (4.7-6.1); RED CELL DISTRIBUTION WIDTH 14.9 % (11.6-14.6)
[2022-03-26 13:47] LABS: CHLORIDE 99 mEq/L (98-107)
[2022-03-26 18:23] LABS: BASOPHILS % 0.3 % (0.0-2.0); EOSINOPHILS % 1.4 % (0.0-5.0); HEMATOCRIT. 30.6 % (42.0-52.0); HEMOGLOBIN. 10.1 g/dL (14.0-18.0); LYMPHOCYTES % 15.5 % (20.0-50.0); MEAN CORPUSCULAR HEMOGLOBIN 31.7 pg (28.0-32.0); MEAN CORPUSCULAR VOLUME 95.9 fL (80.0-94.0); MEAN PLATELET VOLUME 8.2 fl (7.4-10.4); NEUTROPHILS % 72.8 % (40.0-76.0); PLATELET 318 x1000/uL (130-400); RED CELL DISTRIBUTION WIDTH 14.8 % (11.6-14.6)
[2022-03-26 18:46] LABS: CHLORIDE 100 mEq/L (98-107)
[2022-03-27] VITALS: BP 112/70
[2022-03-27] MEDS: ATORVASTATIN CALCIUM 40MG TABLET PO SCH ×2 (00:06→22:23)
[2022-03-27] MEDS: AMLODIPINE 2.5MG TABLET PO SCH ×3 (00:06→22:24)
[2022-03-27] MEDS: METOPROLOL TARTRATE 25MG TABLET PO SCH ×3 (00:07→22:25)
[2022-03-27] MEDS ORDERED: SODIUM POLYSTYRENE SULFONATE 15 G/60 ML BOT PO NR (01:30)
[2022-03-27 08:00] VITALS: BP 106/66
[2022-03-27] MEDS: TAMSULOSIN HCL 0.4MG SR CAPSULE PO SCH ×2 (08:57→09:00)
[2022-03-27] MEDS: FINASTERIDE 5MG TABLET PO SCH ×2 (08:57→09:00)
[2022-03-27] MEDS: LOSARTAN POTASSIUM 50 MG TABLET PO SCH (08:58)
[2022-03-27] MEDS: HYDROCODONE/ACETAMINOPHEN 5/325MG TABLET PO PRN (08:58)
[2022-03-27] MEDS: DOCUSATE SODIUM 100MG CAPSULE PO SCH ×2 (08:58→18:28)
[2022-03-27 12:00] VITALS: BP 91/64
[2022-03-27 16:00] VITALS: BP 95/56
[2022-03-27 20:00] VITALS: BP 118/63
[2022-03-28] VITALS: BP 104/66
[2022-03-28] MEDS: CEFEPIME 1,000 MG in DEXTROSE 5% WATER 50 ML IV SCH (01:00)
[2022-03-28 04:00] VITALS: BP 112/79
[2022-03-28 07:35] LABS: BASOPHILS % 0.3 % (0.0-2.0); HEMATOCRIT. 26.7 % (42.0-52.0); LYMPHOCYTES % 22.3 % (20.0-50.0); MEAN CORPUSCULAR VOLUME 94.8 fL (80.0-94.0); MEAN PLATELET VOLUME 8.1 fl (7.4-10.4); MONOCYTES % 8.5 % (2.0-8.0); NEUTROPHILS % 66.9 % (40.0-76.0); PLATELET 371 x1000/uL (130-400); RED BLOOD CELL COUNT 2.82 mill/uL (4.7-6.1)
[2022-03-28 08:00] VITALS: BP 110/72
[2022-03-28 08:19] LABS: CHLORIDE 98 mEq/L (98-107)
[2022-03-28] MEDS: FINASTERIDE 5MG TABLET PO SCH (10:10)
[2022-03-28] MEDS: TAMSULOSIN HCL 0.4MG SR CAPSULE PO SCH (10:10)
[2022-03-28] MEDS: DOCUSATE SODIUM 100MG CAPSULE PO SCH ×2 (10:10→19:00)
[2022-03-28] MEDS: AMLODIPINE 2.5MG TABLET PO SCH ×2 (10:10→20:58)
[2022-03-28] MEDS: METOPROLOL TARTRATE 25MG TABLET PO SCH ×2 (10:10→20:58)
[2022-03-28 12:00] VITALS: BP 103/60
[2022-03-28 16:00] VITALS: BP 96/56
[2022-03-28] MEDS: ACETAMINOPHEN 650MG/20.3ML UDC GT PRN ×2 (18:30→18:36)
[2022-03-28 20:00] VITALS: BP 125/81
[2022-03-28] MEDS: ATORVASTATIN CALCIUM 40MG TABLET PO SCH (20:58)
[2022-03-29] VITALS: BP 109/73
[2022-03-29 04:00] VITALS: BP 96/63
[2022-03-29] MEDS: DOCUSATE SODIUM 100MG CAPSULE PO SCH ×2 (08:36→17:00)
[2022-03-29] MEDS: TAMSULOSIN HCL 0.4MG SR CAPSULE PO SCH (08:36)
[2022-03-29] MEDS: AMLODIPINE 2.5MG TABLET PO SCH ×2 (08:37→20:25)
[2022-03-29] MEDS: METOPROLOL TARTRATE 25MG TABLET PO SCH ×2 (08:37→20:26)
[2022-03-29] MEDS: FINASTERIDE 5MG TABLET PO SCH (08:37)
[2022-03-29 12:00] VITALS: BP 111/66
[2022-03-29] MEDS: CEFEPIME 1,000 MG in DEXTROSE 5% WATER 50 ML IV SCH ×2 (12:56→23:12)
[2022-03-29 16:00] VITALS: BP 112/66
[2022-03-29 20:00] VITALS: BP 107/65
[2022-03-29] MEDS: ATORVASTATIN CALCIUM 40MG TABLET PO SCH (20:25)
[2022-03-30] VITALS: BP 109/62
[2022-03-30 04:00] VITALS: BP 108/60
[2022-03-30 08:00] VITALS: BP 113/69
[2022-03-30] MEDS: METOPROLOL TARTRATE 25MG TABLET PO SCH ×2 (09:04→20:12)
[2022-03-30] MEDS: TAMSULOSIN HCL 0.4MG SR CAPSULE PO SCH (09:04)
[2022-03-30] MEDS: FINASTERIDE 5MG TABLET PO SCH (09:05)
[2022-03-30] MEDS: DOCUSATE SODIUM 100MG CAPSULE PO SCH ×2 (09:05→18:27)
[2022-03-30] MEDS: AMLODIPINE 2.5MG TABLET PO SCH ×2 (09:08→20:11)
[2022-03-30] MEDS: CEFEPIME 1,000 MG in DEXTROSE 5% WATER 50 ML IV SCH ×2 (12:39→23:07)
[2022-03-30 16:33] VITALS: BP 115/66
[2022-03-30 20:00] VITALS: BP 117/72
[2022-03-30] MEDS: ATORVASTATIN CALCIUM 40MG TABLET PO SCH (20:08)
[2022-03-31] VITALS: BP 155/70
[2022-03-31 04:00] VITALS: BP 135/80
[2022-03-31 08:00] VITALS: BP 104/61
[2022-03-31] MEDS: AMLODIPINE 2.5MG TABLET PO SCH ×2 (09:00→20:58)
[2022-03-31] MEDS: METOPROLOL TARTRATE 25MG TABLET PO SCH ×2 (09:00→21:00)
[2022-03-31 12:00] VITALS: BP 108/64
[2022-03-31] MEDS: FINASTERIDE 5MG TABLET PO SCH (12:03)
[2022-03-31] MEDS: TAMSULOSIN HCL 0.4MG SR CAPSULE PO SCH (12:03)
[2022-03-31] MEDS: DOCUSATE SODIUM 100MG CAPSULE PO SCH ×2 (12:03→20:19)
[2022-03-31] MEDS: CEFEPIME 1,000 MG in DEXTROSE 5% WATER 50 ML IV SCH ×2 (12:03→22:57)
[2022-03-31 16:00] VITALS: BP 115/70
[2022-03-31 20:00] VITALS: BP 108/65
[2022-03-31] MEDS: ATORVASTATIN CALCIUM 40MG TABLET PO SCH (20:58)
[2022-04-01] VITALS: BP 113/65
[2022-04-01 04:00] VITALS: BP 127/66
[2022-04-01 08:00] VITALS: BP 103/67
[2022-04-01] MEDS: AMLODIPINE 2.5MG TABLET PO SCH ×2 (09:00→20:22)
[2022-04-01] MEDS: METOPROLOL TARTRATE 25MG TABLET PO SCH ×2 (09:00→20:20)
[2022-04-01] MEDS: TAMSULOSIN HCL 0.4MG SR CAPSULE PO SCH (09:11)
[2022-04-01] MEDS: DOCUSATE SODIUM 100MG CAPSULE PO SCH ×2 (09:11→17:22)
[2022-04-01] MEDS: FINASTERIDE 5MG TABLET PO SCH (09:11)
[2022-04-01] MEDS: CEFEPIME 1,000 MG in DEXTROSE 5% WATER 50 ML IV SCH ×2 (10:55→22:14)
[2022-04-01 12:00] VITALS: BP 105/59
[2022-04-01 16:00] VITALS: BP 102/60
[2022-04-01] MEDS: ACETAMINOPHEN 650MG/20.3ML UDC GT PRN (17:23)
[2022-04-01 20:00] VITALS: BP 102/48
[2022-04-01] MEDS: ATORVASTATIN CALCIUM 40MG TABLET PO SCH (20:19)
[2022-04-02] VITALS: BP 99/44
[2022-04-02] MEDS: ACETAMINOPHEN 650MG/20.3ML UDC GT PRN (01:23)
[2022-04-02 04:00] VITALS: BP 95/52
[2022-04-02 08:00] VITALS: BP 111/75
[2022-04-02] MEDS: AMLODIPINE 2.5MG TABLET PO SCH ×2 (09:00→20:59)
[2022-04-02] MEDS: METOPROLOL TARTRATE 25MG TABLET PO SCH ×2 (09:00→20:58)
[2022-04-02] MEDS: DOCUSATE SODIUM 100MG CAPSULE PO SCH ×2 (10:07→17:37)
[2022-04-02] MEDS: TAMSULOSIN HCL 0.4MG SR CAPSULE PO SCH (10:08)
[2022-04-02] MEDS: FINASTERIDE 5MG TABLET PO SCH (10:09)
[2022-04-02] MEDS: CEFEPIME 1,000 MG in DEXTROSE 5% WATER 50 ML IV SCH (11:51)
[2022-04-02 12:00] VITALS: BP_SYST 104; BP_SYST 109; BP_DIAS 68; BP_DIAS 74
[2022-04-02 16:00] VITALS: BP 104/74
[2022-04-02 20:00] VITALS: BP 116/73
[2022-04-02] MEDS: ATORVASTATIN CALCIUM 40MG TABLET PO SCH (20:57)
[2022-04-03] VITALS: BP 115/79
[2022-04-03] MEDS: CEFEPIME 1,000 MG in DEXTROSE 5% WATER 50 ML IV SCH (02:14)
[2022-04-03 04:00] VITALS: BP 119/74
[2022-04-03 08:00] VITALS: BP 109/74
[2022-04-03] MEDS: METOPROLOL TARTRATE 25MG TABLET PO SCH (08:10)
[2022-04-03] MEDS: AMLODIPINE 2.5MG TABLET PO SCH (08:11)
[2022-04-03] MEDS: FINASTERIDE 5MG TABLET PO SCH (08:49)
[2022-04-03] MEDS: DOCUSATE SODIUM 100MG CAPSULE PO SCH ×2 (08:50→17:00)
[2022-04-03] MEDS: TAMSULOSIN HCL 0.4MG SR CAPSULE PO SCH (08:50)
[2022-04-03 12:00] VITALS: BP 110/72
[2022-04-03 15:30] VITALS: BP 110/72
[2022-04-03 16:00] VITALS: BP 117/68
== END 2022-04-03 18:09 | DRG 28 ==
LOC: ER 23:32 → 6EST 03-12 10:51 → EDBEDREQTM 03-12 11:14 → EDBEDREQ 03-12 11:14 → ENRESERV 03-12 11:56 → MICUSO 03-19 11:45 → 8WST 03-21 20:19 → 6EST 03-26 01:08
PROVIDERS: ADMIT Internal Medicine; ATTEND Internal Medicine
PROC: 4A00X4Z Measurement of Central Nervous Electrical Activity, External Approach (ICD-10-PCS; 2022-03-15)
PROC: 0RG2071 Fusion of 2 or more Cervical Vertebral Joints with Autologous Tissue Substitute, Posterior Approach, Posterior Column, Open Approach (ICD-10-PCS; principal; 2022-03-19)
PROC: 4A11X4G Monitoring of Peripheral Nervous Electrical Activity, Intraoperative, External Approach (ICD-10-PCS; 2022-03-19)
PROC: 06HY33Z Insertion of Infusion Device into Lower Vein, Percutaneous Approach (ICD-10-PCS; 2022-03-20)
PROC: 05HY33Z Insertion of Infusion Device into Upper Vein, Percutaneous Approach (ICD-10-PCS; 2022-03-21)
PROC: 06H03DZ Insertion of Intraluminal Device into Inferior Vena Cava, Percutaneous Approach (ICD-10-PCS; 2022-03-24)
DX: I63.81 Other cerebral infarction due to occlusion or stenosis of small artery (principal); G82.50 Quadriplegia, unspecified; T83.518A Infection and inflammatory reaction due to other urinary catheter, initial encounter; N39.0 Urinary tract infection, site not specified; G95.20 Unspecified cord compression; I82.411 Acute embolism and thrombosis of right femoral vein; M48.02 Spinal stenosis, cervical region; E11.9 Type 2 diabetes mellitus without complications; G93.89 Other specified disorders of brain; M50.221 Other cervical disc displacement at C4-C5 level; I10 Essential (primary) hypertension; N40.1 Benign prostatic hyperplasia with lower urinary tract symptoms; F14.10 Cocaine abuse, uncomplicated; Z20.822 Contact with and (suspected) exposure to COVID-19; Y84.6 Urinary catheterization as the cause of abnormal reaction of the patient, or of later complication, without mention of misadventure at the time of the procedure; Z79.899 Other long term (current) drug therapy; Z87.891 Personal history of nicotine dependence; Z95.828 Presence of other vascular implants and grafts; Z99.3 Dependence on wheelchair; Y92.89 Other specified places as the place of occurrence of the external cause
CPT/HCPCS: 36415; 36573; 37191; 70551; 71045; 72040; 72141; 72146; 72148; 73560; 73700; 76000; 76770; 76857; 78582; 80048; 80053; 80061; 80305; 81003; 82553; 82607; 82962; 83036; 83735; 84484; 85025; 86850; 86900; 87426; 88304; 93005; 93306; 93880; 93970; 95816; 95925; 95926; 95928; 95929; 97162; 99285; A4565; A6261; A9558; C1713; C1725; C1769; C1880; C1893; J0360; J0690; J0692; J0696; J1100; J1170; J1580; J1956; J2250; J2270; J2704; J2710; J3010; J3490; J7050; J7060; J7121; L0172; Q9967; A4315